=== PATIENT | male | born 1960 | race Caucasian/White ===

== ENCOUNTER 2018-05-17 16:46 | Inpatient (IN) | payer SELFPAY ==
[~2018-05-17] VITALS: Ht 188 cm; Wt 113.4 kg
--- NOTE | 2018-05-17 17:48 | ED CARDIAC/CP/PALPITATIONS ---
History of Present Illness General Chief Complaint: Abdominal Pain/Flank Pain Stated Complaint: "ABD PAIN,FATIGUE" Source: patient, old records Exam Limitations: no limitations Vital Signs & Intake/Output Vital Signs & Intake/Output Vital Signs Date Time Temp Pulse Resp B/P B/P Pulse O2 O2 Flow FiO2 Mean Ox Delivery Rate 05/18 0714 98.3 109 22 127/81 96 Room Air 05/18 0046 92 Nasal 2.0L Cannula 05/18 0046 28 90 Room Air 05/17 2348 98.4 118 18 138/96 96 Room Air 05/17 2225 97.8 126 16 123/87 97 Room Air 05/17 2021 119 16 120/86 97 Room Air 05/17 2006 130 118/90 05/17 2003 130 118/90 05/17 1936 126 105/81 05/17 1857 97.8 120 18 102/64 98 Room Air Room Air 05/17 1832 97.3 80 18 188/96 05/17 1706 97.3 80 18 188/96 97 Room Air ED Intake and Output 05/18 0000 05/17 1200 Intake Total Output Total 300 Balance -300 Output, Urine 300 Patient 113.398 kg Weight Allergies Coded Allergies: NO KNOWN ALLERGIES (05/17/18) Reconcile Medications Apixaban (Eliquis) 5 MG TABLET 5 MG PO BID PRN Atrial fibrillation Cephalexin 500 MG CAPSULE 500 MG PO Q12 UTI Diltiazem Cd (Diltiazem ER) 120 MG CAP.ER.DEG 120 MG PO DAILY atrial fibrillation Triage Note: PT TO TRIAGE WITH MULTIPLE COMPLAINTS, STATES THAT HE STOPPED SMOKING ABOUT 1 WEEK AGO, STATES THAT HE HAS NOT BEEN FEELING WELL FOR THE PAST WEEK, COMPLAINS OF FATIGUE, NO APPETITE , HAS HAD NON PRODUCTIVE COUGH AND SOME SOB, O2 SAT 97 % ON RA, AFEBRILE, DENIES ABD PAIN WHILE AT TRIAGE , STATES THAT HE IS WORRIED HE HAS CANCER Triage Nurses Notes Reviewed? yes HPI: 58M with no significant PMH, recently quit smoking after a 30 year habit, presenting with a sensation of generally feeling unwell. Since quitting smoking 4-5 days ago, he has felt agitated, weak, fatigued, and has had a sense of malaise. He was found to be in rapid atrial fibrillation on arrival. He denies chest pain, palpitations, SOB, diaphoresis, lightheadedness, headache, n/v/d, abdominal pain, diarrhea, dysuria. He has no cardiac history, and no family history. No drug use. Past History Travel History Traveled to [place] past 21 day No Medical History Any Pertinent Medical History? see below for history Neurological: NONE EENT: NONE Cardiovascular: NONE Respiratory: NONE Gastrointestinal: NONE Hepatic: NONE Renal: NONE Musculoskeletal: NONE Psychiatric: NONE Endocrine: NONE Blood Disorders: NONE Cancer(s): NONE [employer]/Reproductive: NONE Surgical History Surgical History: non-contributory Psychosocial History What is your primary language Malian Tobacco Use: Quit <30 days ago ETOH Use: denies use Illicit Drug Use: denies illicit drug use Family History Hx Contributory? No Review of Systems Review of Systems Constitutional: Reports: no symptoms. EENTM: Reports: no symptoms. Respiratory: Reports: no symptoms. Cardiovascular: Reports: no symptoms. GI: Reports: no symptoms. Genitourinary: Reports: no symptoms. Musculoskeletal: Reports: no symptoms. Skin: Reports: no symptoms. Neurological/Psychological: Reports: no symptoms. Hematologic/Endocrine: Reports: no symptoms. Immunologic/Allergic: Reports: no symptoms. All Other Systems: Reviewed and Negative Physical Exam Physical Exam General Appearance: well developed/nourished, no apparent distress Head: atraumatic, normal appearance Eyes: Bilateral: normal appearance. Ears, Nose, Throat: hearing grossly normal Neck: normal inspection, supple, full range of motion Respiratory: normal breath sounds, chest non-tender, no respiratory distress Cardiovascular: irregularly irregular Gastrointestinal: soft, non-tender Back: normal inspection, normal range of motion Extremities: normal inspection, normal range of motion Neurologic/Psych: awake, alert, oriented x 3, normal mood/affect Skin: intact, normal color, warm/dry Core Measures ACS in differential dx? No CVA/TIA Diagnosis No Sepsis Present: No Sepsis Focused Exam Completed? No Progress Differential Diagnosis: AMI, aortic dissection, atrial fibrillation, cholecystitis, CHF/pulm edema, costochondritis, hyperkalemia, hypovolemia, hyperthyroid, hyperventilation, intracranial hemorrhage, musculoskeletal pain, myocarditis, pancreatitis, pericarditis, pneumonia, pneumothorax, PSVT, pulmonary embolism, PUD/GERD, PVCs/PACs, respiratory failure, rib fracture, sepsis, unstable angina, V-fib/V-Tach, WPW syndrome Plan of Care: Orders Procedure Date/time Status Heart Healthy Diet 05/18 B Active XRY-CHEST XRAY, TWO VIEWS 05/18 0800 Active PARTIAL THROMBOPLASTIN TIME 05/18 0800 Active Change service to 05/18 0717 Active TROPONIN LEVEL 05/18 0600 Complete MAGNESIUM 05/18 0600 Complete CBC WITHOUT DIFFERENTIAL 05/18 0600 Complete BASIC ELECTROLYTES PLUS BUN&CR 05/18 0600 Complete EKG 05/18 0600 Active ECHOCARDIOGRAM 05/18 0600 Active LOWER RESPIRATORY CULTURE 05/18 0103 Active PARTIAL THROMBOPLASTIN TIME 05/18 0030 Complete TROPONIN LEVEL 05/18 0000 Complete EKG 05/18 0000 Active TRC EVALUATION (GEN) 05/18 UNK Active Discharge Patient 05/18 UNK Active Pathway - chart 05/17 204 Active House Staff 05/17 2047 Active Patient Data 05/17 2028 Active ED Holding Orders 05/17 185 Active Admit to inpatient 05/17 185 Active Vital Signs 05/17 1858 Active Code Status 05/17 1858 Active Intake & Output 05/17 185 Active CULTURE,URINE 05/17 1822 Complete URINE DRUGS OF ABUSE 05/17 1822 Complete TSH REFLEX 05/17 1804 Complete URINALYSIS 05/17 1650 Complete TROPONIN LEVEL 05/17 1650 Complete LIPASE 05/17 1650 Complete LACTIC ACID 05/17 1650 Complete COMPREHENSIVE METABOLIC PANEL 05/17 1650 Complete CBC WITHOUT DIFFERENTIAL 05/17 1650 Complete EKG 05/17 1650 Active Lab Add-on Test 05/17 K Active VTE Mechanical Prophylaxis 05/17 UNK Active Telemetry/Software Asset Manager 05/17 UNK Active Activity/Ambulation 05/17 UNK Active Laboratory Tests 05/18/18 0625: Anion Gap 7, Estimated GFR > 60, BUN/Creatinine Ratio 20.0, Magnesium 2.1, Troponin I 0.04, CBC w Diff NO MAN DIFF REQ, RBC 5.00, MCV 90.0, MCH 29.9, MCHC 33.3, RDW 14.7 H, MPV 8.8, Gran % 67.4, Lymphocytes % 21.3, Monocytes % 8.3, Eosinophils % 2.6, Basophils % 0.4, Absolute Granulocytes 7.2 H, Absolute Lymphocytes 2.3, Absolute Monocytes 0.9 H, Absolute Eosinophils 0.3, Absolute Basophils 0 05/18/18 0030: Troponin I 0.04, APTT 43 H 05/17/18 1950: Lactic Acid Cancelled 05/17/181821: Urine Opiates Screen < 100, Methadone Screen < 40, Barbiturate Screen < 60, Ur Phencyclidine Scrn < 6.00, Amphetamines Screen < 100, U Benzodiazepines Scrn < 85, Urine Cocaine Screen < 50, Urine Cannabis Screen < 5.00, Urinalysis LIGHT H , Urine Color YEL, Urine Clarity HAZY H, Urine pH 6.0, Ur Specific Tracy >= 1.030, Urine Protein 100 H, Urine Ketones NEG, Urine Nitrite POS H, Urine Bilirubin NEG, Urine Urobilinogen 0.2, Ur Leukocyte Esterase SMALL H, Ur Microscopic SEDIMENT EXAMINED, Urine WBC 25-50 H, Urine Bacteria MANY H, Urine Hemoglobin MOD H, Urine Glucose NEG 05/17/18 180: Anion Gap 9, Estimated GFR > 60, BUN/Creatinine Ratio 18.9, Glucose 136 H, Lactic Acid 1.7, Calcium 8.9, Total Bilirubin 1.1, AST 40, ALT 44, Alkaline Phosphatase 89, Troponin I 0.04, Total Protein 7.1, Albumin 3.6, Globulin 3.5, Albumin/Globulin Ratio 1.0 L, Lipase 51, TSH &T3 &Free T4 Intrp 2.890, CBC w Diff NO MAN DIFF REQ, RBC 5.25, MCV 89.6, MCH 29.6, MCHC 33.1, RDW 15.1 H, MPV 8.6, Gran % 66.9, Lymphocytes % 22.6, Monocytes % 7.3, Eosinophils % 2.6, Basophils % 0.6, Absolute Granulocytes 7.2 H, Absolute Lymphocytes 2.4, Absolute Monocytes 0.8 H, Absolute Eosinophils 0.3, Absolute Basophils 0.1 Microbiology 05/18 103 LOWER RESP: Respiratory Culture - COLB 05/18 103 LOWER RESP: Gram Stain - COLB 05/17 1822 URINE ROUT: Urine Culture - COMP Initial ED EKG: AFIB Departure Departure Disposition: STILL A PATIENT Condition: Stable Clinical Impression Primary Impression: New onset atrial fibrillation Referrals: Patient Has No Primary Care Dr (PCP/Family) Departure Forms: Customer Survey General Discharge Information Prescriptions: Current Visit Scripts Cephalexin 500 MG PO Q12 #14 TAB Apixaban (Eliquis) 5 MG PO BID PRN Atrial fibrillation #46 TAB Diltiazem Cd (Diltiazem ER) 120 MG PO DAILY #21 TAB Admission Note Spoke With: Donte Juarez MD Documentation of Exam: Documentation of any treatments & extenuating circumstances including Concerns Regarding Discharge (functional status, medication knowledge or non-compliance, living conditions, etc.) that warrant an admission rather than observation: new onset atrial fibrillation wtih RVR, will admit to medicine for telemetry monitoring, heparin drip, cardizem drip, echocardiogram, cardiology cosnult Critical Care Note Critical Care Note Critical Care Time: non-applicable
[2018-05-17 18:23] LABS: ABSOLUTE BASOPHIL COUNT 0.1 /CUMM (0.0-0.2); ABSOLUTE EOSINOPHIL COUNT 0.3 /CUMM (0.0-0.7); ABSOLUTE GRANULOCYTE CT 7.2 /CUMM (1.4-6.5); ABSOLUTE LYMPH COUNT 2.4 /CUMM (1.2-3.4); ABSOLUTE MONOCYTE COUNT 0.8 /CUMM (0.10-0.60); BASOPHIL % 0.6 % (0.0-2.0); EOSINOPHIL % 2.6 % (0-5); GRANULOCYTE % 66.9 % (42.2-75.2); MEAN CORPUSCULAR HGB 29.6 PG (27.0-31.0); MEAN CORPUSCULAR HGB CONC 33.1 G/DL (33.0-37.0); MEAN CORPUSCULAR VOLUME 89.6 FL (80.0-94.0); MEAN PLATELET VOLUME 8.6 FL (7.4-10.4); PLATELET COUNT 216 /CUMM (130-400); RBC DISTRIBUTION WIDTH 15.1 % (11.5-14.5); RED BLOOD CELL CT 5.25 /CUMM (4.70-6.10); WHITE BLOOD CELL COUNT 10.8 /CUMM (4.8-10.8)
--- NOTE | 2018-05-17 19:36 | History & Physical ---
Mike Almanzar 05/17/181935: General Information and HPI MD Statement: I have seen and personally examined FRAN MADRIGAL and documented this H&P. The patient is a 58 year old M who presented with a patient stated chief complaint of FATIGUE AND WEAKNESS. Source of Information: patient Exam Limitations: poor historian History of Present Illness: 58-year-old male with no significant past medical history presents with five days of weakness and fatigue. He noticed these symptoms, and associates them in time with his attempt to quit smoking. He endorses shortness of breath, but denies any chest pain, claiming only that it "feels weird", but not painful. He says that his dyspnea is somewhat "like a baloon being filled", which relieves the weird feeling, but then returns after some time. The patient also endorses some nausea, and difficulty sleeping. He denies palpitations. He states that he feels better sitting up than lying flat. He has tried no medications to treat his symptoms. In the ED, the patient was found to have atrial fibrillation, with heart rate 130-180. His UA also showed positive nitrites, protein 100, small leuk esterase, 25-50 WBCs, Many bacteria and moderate hemoglobin. Allergies/Medications Home Med list No Known Home Medications Compliance With Home Meds: UNKNOWN Past History Travel History Traveled to [place] past 21 day No Medical History Neurological: NONE EENT: NONE Cardiovascular: NONE Respiratory: NONE Gastrointestinal: NONE Hepatic: NONE Renal: NONE Musculoskeletal: NONE Psychiatric: NONE Endocrine: NONE Blood Disorders: NONE Cancer(s): NONE SUPERVISING APPRAISER/Reproductive: NONE Surgical History Surgical History: non-contributory Past Family/Social History Psychosocial History Where do you live? Home Who Do You Live With? self Services at Home: None Primary Language: Citizen Of The [place] Smoking Status: Former Smoker (quit <5 days prior) ETOH Use: denies use Illicit Drug Use: denies illicit drug use Functional Ability ADLs Independent: dressing, eating, toileting, bathing. Ambulation: independent IADLs Independent: shopping, housework, finances, food prep, telephone, transportation , medication admin. 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 EENTM: Reports: no symptoms. Cardiovascular: Reports: chest pain (more "weird" feeling than pain). Denies: edema, palpitations, syncope. Respiratory: Reports: short of breath. Denies: cough, sputum production, wheezing. GI: Reports: abdominal pain, nausea. Denies: bloating, changes in stool, vomiting. Genitourinary: Reports: no symptoms. Musculoskeletal: Reports: muscle pain (chronic). Skin: Reports: no symptoms. Neurological/Psychological: Reports: no symptoms. Hematologic/Endocrine: Reports: no symptoms. Immunologic/Allergic: Reports: no symptoms. Exam & Diagnostic Data Last 24 Hrs of Vital Signs/I&O Vital Signs Date Time Temp Pulse Resp B/P B/P Pulse O2 O2 Flow FiO2 Mean Ox Delivery Rate 05/17 2225 97.8 126 16 123/87 97 Room Air 05/17 2021 119 16 120/86 97 Room Air 05/17 2006 130 118/90 05/17 2003 130 118/90 05/17 193 126 105/81 05/17 1857 97.8 120 18 102/64 98 Room Air Room Air 05/17 1832 97.3 80 18 188/96 05/17 1706 97.3 80 18 188/96 97 Room Air Physical Exam General Appearance Alert, Oriented X3, Cooperative, Mild Distress Skin No Rashes, No Breakdown, No Significant Lesion Skin Temp/Moisture Exam: Warm/Dry HEENT Atraumatic, PERRLA, EOMI, Mucous Membr. moist/pink Neck Supple, No JVD Cardiovascular irregularly irrgular, rate 110-130, no murmurs, rubs or gallops Lungs Clear to Auscultation, decreased air movement Abdomen Soft, No Tenderness, obese Neurological Normal Speech, Strength at 5/5 X4 Ext, Normal Tone, Sensation Intact Extremities No Clubbing, No Cyanosis, 1+ nonpitting edema LE bilaterally Vascular Normal Pulses, Pulses Symmetrical Last 24 Hrs of Labs/Josafat: Laboratory Tests 05/17/18 1950: Lactic Acid Cancelled 05/17/18 1822: Urine Opiates Screen < 100, Methadone Screen < 40, Barbiturate Screen < 60, Ur Phencyclidine Scrn < 6.00, Amphetamines Screen < 100, U Benzodiazepines Scrn < 85, Urine Cocaine Screen < 50, Urine Cannabis Screen < 5.00, Urinalysis LIGHT H , Urine Color YEL, Urine Clarity HAZY H, Urine pH 6.0, Ur Specific Vona >= 1.030, Urine Protein 100 H, Urine Ketones NEG, Urine Nitrite POS H, Urine Bilirubin NEG, Urine Urobilinogen 0.2, Ur Leukocyte Esterase SMALL H, Ur Microscopic SEDIMENT EXAMINED, Urine WBC 25-50 H, Urine Bacteria MANY H, Urine Hemoglobin MOD H, Urine Glucose NEG 05/17/18 1804: Anion Gap 9, Estimated GFR > 60, BUN/Creatinine Ratio 18.9, Glucose 136 H, Lactic Acid 1.7, Calcium 8.9, Total Bilirubin 1.1, AST 40, ALT 44, Alkaline Phosphatase 89, Troponin I 0.04, Total Protein 7.1, Albumin 3.6, Globulin 3.5, Albumin/Globulin Ratio 1.0 L, Lipase 51, TSH &T3 &Free T4 Intrp 2.890, CBC w Diff NO MAN DIFF REQ, RBC 5.25, MCV 89.6, MCH 29.6, MCHC 33.1, RDW 15.1 H, MPV 8.6, Gran % 66.9, Lymphocytes % 22.6, Monocytes % 7.3, Eosinophils % 2.6, Basophils % 0.6, Absolute Granulocytes 7.2 H, Absolute Lymphocytes 2.4, Absolute Monocytes 0.8 H, Absolute Eosinophils 0.3, Absolute Basophils 0.1 Microbiology 05/17 1822 URINE ROUT: Urine Culture - RECD Diagnostic Data EKG Results Atrial fibrillation HR 130-180, QTc 500 Assessment/Plan Assessment: 58 year old male with no significant PMH comes to ED with complaints of fatigue and weakness x5 days. In the ED he is found to have new onset afib 130-180HR. Incidentally his UA is suggestive of infection. Problem list/plan: New onset afib -Admit to telemetry for monitoring -Vitals, I's & O's per protocol -Potential causes include ACS, PE, hyperthyroid, other electrical heart issues -Repeat serial EKG and troponins to r/o ACS, electrical abnormality -Order thyroid panel to check for hyperthyroid -Chest x-ray showed no acute process, lower lobe opacity -Diltiazem drip 7.5ml/hr for rate control -Cardiology consult in the AM -Consider echocardiogram -Acetaminophen for pain Urinalysis suggestive of infection -Suggestive of infection, although asymptomatic -remote hx of UTI -Ceftriaxone 1g IV x 1 dose -F/u urine cultures Smoking: -Will order nicotine patch if needed -Left lower lobe opacity on chest x-ray and borderline hypoxemia -TRC evaluation -Repeat chest x-ray with PA and lateral in the morning DVT prophylaxis: Heparin gtt and ALPS Heart healthy diet Patient is full code As Ranked By This Provider Problem List: 1. New onset atrial fibrillation Core Measures/Misc (06/15) Cerebrovascular Accident CVA/TIA Diagnosis: No Sepsis (View protocol) If YES complete Sepsis Event Note If YES complete Sepsis Event Note Trae Cruz MD 05/17/182025: General Information and HPI MD Statement: I have seen and personally examined FRAN MADRIGAL and documented this H&P. The patient is a 58 year old M who presented with a patient stated chief complaint of faftigue and weakness. Source of Information: patient Exam Limitations: no limitations History of Present Illness: 58 year old male with PMH history significant for smoking presents with complaints of fatigue and weakness for the past five days. He noticed his symptoms started after smoking cessation and attributed his symptoms to that. He has also noticed some dyspnea. He says he felt weird/strange sensation in his chest substernal, but denies chest pain. He has a hard time describing the sensation in his chest. He has had some intermittent nausea and difficulty sleeping for the past several days. He denies palpitations. His primary symptoms are dyspnea and fatigue. He states he felt better sitting up rather than lying flat. He has exertional dyspnea. He is a daily cigarello smoker. He denies alcohol or illicit substances and drinks two cups of coffee daily. He is employed and lives alone. He states he hasn't been to the doctors in years and reports once being treated for a urinary tract infection but denies any history of kidney stones. He is otherwise well except for obesity, takes no medications, NKDA, no PSH, and unknown family history. In the ED, he was found to be in atrial fibrillation with rapid ventricular response, was started on cardizem and heparin drips, and admitted to telemetry. Allergies/Medications Compliance With Home Meds: GOOD Past History Travel History Traveled to [place] past 21 day No Medical History Neurological: NONE EENT: NONE Cardiovascular: NONE Respiratory: NONE Gastrointestinal: NONE Hepatic: NONE Renal: NONE Musculoskeletal: NONE Psychiatric: NONE Endocrine: NONE Blood Disorders: NONE Cancer(s): NONE SUPERVISING APPRAISER/Reproductive: NONE Other Medical Hx: h/o UTI Surgical History Surgical History: none Past Family/Social History Family History Relations & Conditions if any Relation not specified for: *No pertinent family history Psychosocial History Where do you live? Home Who Do You Live With? self Services at Home: None Primary Language: Citizen Of The [place] Smoking Status: Former Smoker Functional Ability ADLs Independent: dressing, eating, toileting, bathing. Ambulation: independent IADLs Independent: shopping, housework, finances, food prep, telephone, transportation , medication admin. 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 Denies: chills, diaphoresis, fever. EENTM: Reports: no symptoms. Cardiovascular: Reports: chest pain. Denies: edema, palpitations, syncope. Respiratory: Reports: cough, short of breath. Denies: sputum production, wheezing. GI: Reports: abdominal pain, nausea. Denies: bloating, diarrhea, changes in stool, vomiting. Genitourinary: Reports: no symptoms. Denies: dysuria, frequency. Musculoskeletal: Reports: muscle pain. Skin: Reports: no symptoms. Neurological/Psychological: Reports: no symptoms. Hematologic/Endocrine: Reports: no symptoms. Immunologic/Allergic: Reports: no symptoms. All Other Systems: Reviewed and Negative Exam & Diagnostic Data Last 24 Hrs of Vital Signs/I&O Vital Signs Date Time Temp Pulse Resp B/P B/P Pulse O2 O2 Flow FiO2 Mean Ox Delivery Rate 05/17 2021 119 16 120/86 97 Room Air 05/17 2006 130 118/90 05/17 2003 130 118/90 05/17 1936 126 105/81 05/17 1857 97.8 120 18 102/64 98 Room Air Room Air 05/17 1832 97.3 80 18 188/96 05/17 1706 97.3 80 18 188/96 97 Room Air Physical Exam General Appearance Alert, Oriented X3, Cooperative, No Acute Distress Cardiovascular Normal S1, Normal S2, No Murmurs, irregularly irrgular rhythm, tachycardic Lungs decreased air movement Abdomen Normal Bowel Sounds, Soft, No Tenderness, obese Extremities No Clubbing, No Cyanosis, No Edema, Normal Pulses Last 24 Hrs of Labs/Josafat: Laboratory Tests 05/17/18 1822: Urinalysis LIGHT H, Urine Color YEL, Urine Clarity HAZY H, Urine pH 6.0, Ur Specific Vona >= 1.030, Urine Protein 100 H, Urine Ketones NEG, Urine Nitrite POS H, Urine Bilirubin NEG, Urine Urobilinogen 0.2, Ur Leukocyte Esterase SMALL H, Ur Microscopic SEDIMENT EXAMINED, Urine WBC 25-50 H, Urine Bacteria MANY H, Urine Hemoglobin MOD H, Urine Glucose NEG 05/17/18 1804: Anion Gap 9, Estimated GFR > 60, BUN/Creatinine Ratio 18.9, Glucose 136 H, Lactic Acid 1.7, Calcium 8.9, Total Bilirubin 1.1, AST 40, ALT 44, Alkaline Phosphatase 89, Troponin I 0.04, Total Protein 7.1, Albumin 3.6, Globulin 3.5, Albumin/Globulin Ratio 1.0 L, Lipase 51, CBC w Diff NO MAN DIFF REQ, RBC 5.25, MCV 89.6, MCH 29.6, MCHC 33.1, RDW 15.1 H, MPV 8.6, Gran % 66.9, Lymphocytes % 22.6, Monocytes % 7.3, Eosinophils % 2.6, Basophils % 0.6, Absolute Granulocytes 7.2 H, Absolute Lymphocytes 2.4, Absolute Monocytes 0.8 H, Absolute Eosinophils 0.3, Absolute Basophils 0.1 Diagnostic Data EKG Results afib HR 130-180, LAD, QTc 500 Assessment/Plan Assessment: 58 year old male with PMH history significant for smoking presents with complaints of fatigue and weakness for the past five days and found to be in rapid atrial fibrillation. Atrial fibrillation: CHADsvasc 0-1, unknown re: HTN Continue heparin for now, but low risk for CVA Consider d-Dimer-CTA for PE but patient already anticoagulated at this time Continue cardizem IV 7.5mg/hr, titrate to obtain HR control, goal < 110bpm Check serial troponins and EKGs to evaluate for myocardial ischemia Cardiology consultation Obtain echocardiogram to assess for structural heart disease TSH wnl, urine toxicology negative Urinalysis: Suggestive of infection, although asymptomatic History of UTI Ceftriaxone 1g IV x 1 dose Follow up urine cultures Smoking: Will order nicotine patch if needed Left lower lobe opacity on chest x-ray and borderline hypoxemia TRC evaluation Repeat chest x-ray with PA and lateral in the morning Heart healthy diet DVT ppx-heparin gtt Full code As Ranked By This Provider Problem List: 1. New onset atrial fibrillation Core Measures/Misc (06/15) Acute Coronary Syndrome ACS Diagnosis: No Congestive Heart Failure Congestive Heart Failure Diagnosis No Cerebrovascular Accident CVA/TIA Diagnosis: No VTE (View Protocol) VTE Risk Factors Age>40 No Mechanical VTE Prophylaxis d/t N/A MechProphylax Ordered No VTE Pharm Prophylaxis d/t NA PharmProphylax ordered Sepsis (View protocol) Sepsis Present: No If YES complete Sepsis Event Note If YES complete Sepsis Event Note Donte Juarez MD 05/18/18 0154: General Information and HPI MD Statement: I have seen and personally examined FRAN MADRIGAL and documented this H&P. The patient is a 58 year old M who presented with a patient stated chief complaint of []. Source of Information: patient Allergies/Medications Allergies: Coded Allergies: NO KNOWN ALLERGIES (05/17/18) Past Family/Social History Psychosocial History Smoking Status: Former Smoker ETOH Use: denies use Illicit Drug Use: denies illicit drug use Employment History Employment Employed Review of Systems Review of Systems Constitutional: Reports: see HPI. Exam & Diagnostic Data Last 24 Hrs of Vital Signs/I&O Vital Signs Date Time Temp Pulse Resp B/P B/P Pulse O2 O2 Flow FiO2 Mean Ox Delivery Rate 05/18 0046 92 Nasal 2.0L Cannula 05/18 0046 28 90 Room Air 05/17 2348 98.4 118 18 138/96 96 Room Air 05/17 2225 97.8 126 16 123/87 97 Room Air 05/17 2021 119 16 120/86 97 Room Air 05/17 2006 130 118/90 05/17 2003 130 118/90 05/17 1936 126 105/81 05/17 1857 97.8 120 18 102/64 98 Room Air Room Air 05/17 1832 97.3 80 18 188/96 05/17 1706 97.3 80 18 188/96 97 Room Air Intake & Output 05/18 0800 05/18 0000 05/17 1600 Intake Total Output Total 300 Balance -300 Output, Urine 300 Patient 250 lb Weight Physical Exam General Appearance Alert, Oriented X3, Cooperative, Mild Distress Skin No Rashes, No Breakdown, No Significant Lesion Skin Temp/Moisture Exam: Warm/Dry Sepsis Skin Exam (color): Normal for Ethnicity HEENT Atraumatic, PERRLA, EOMI, Mucous Membr. moist/pink Neck Supple, No JVD Cardiovascular irregularly irrgular rhythm, tachycardic Lungs decreased air movement Abdomen Normal Bowel Sounds, Soft, No Tenderness Neurological Normal Speech Last 24 Hrs of Labs/Josafat: Laboratory Tests 05/18/18 0030: Troponin I Pending, APTT 43 H 05/17/18 1950: Lactic Acid Cancelled 05/17/181821: Urine Opiates Screen < 100, Methadone Screen < 40, Barbiturate Screen < 60, Ur Phencyclidine Scrn < 6.00, Amphetamines Screen < 100, U Benzodiazepines Scrn < 85, Urine Cocaine Screen < 50, Urine Cannabis Screen < 5.00, Urinalysis LIGHT H , Urine Color YEL, Urine Clarity HAZY H, Urine pH 6.0, Ur Specific Vona >= 1.030, Urine Protein 100 H, Urine Ketones NEG, Urine Nitrite POS H, Urine Bilirubin NEG, Urine Urobilinogen 0.2, Ur Leukocyte Esterase SMALL H, Ur Microscopic SEDIMENT EXAMINED, Urine WBC 25-50 H, Urine Bacteria MANY H, Urine Hemoglobin MOD H, Urine Glucose NEG 05/17/18 1804: Anion Gap 9, Estimated GFR > 60, BUN/Creatinine Ratio 18.9, Glucose 136 H, Lactic Acid 1.7, Calcium 8.9, Total Bilirubin 1.1, AST 40, ALT 44, Alkaline Phosphatase 89, Troponin I 0.04, Total Protein 7.1, Albumin 3.6, Globulin 3.5, Albumin/Globulin Ratio 1.0 L, Lipase 51, TSH &T3 &Free T4 Intrp 2.890, CBC w Diff NO MAN DIFF REQ, RBC 5.25, MCV 89.6, MCH 29.6, MCHC 33.1, RDW 15.1 H, MPV 8.6, Gran % 66.9, Lymphocytes % 22.6, Monocytes % 7.3, Eosinophils % 2.6, Basophils % 0.6, Absolute Granulocytes 7.2 H, Absolute Lymphocytes 2.4, Absolute Monocytes 0.8 H, Absolute Eosinophils 0.3, Absolute Basophils 0.1 Microbiology 05/18 103 LOWER RESP: Respiratory Culture - ORD 05/18 103 LOWER RESP: Gram Stain - ORD 05/17 1822 URINE ROUT: Urine Culture - RECD Core Measures/Misc (06/15) Sepsis (View protocol) If YES complete Sepsis Event Note If YES complete Sepsis Event Note Attending MD Review Statement Attending Statement Attending MD Statement: examined this patient, discuss w/resident/PA/FINANCIAL ADVISOR TRAINEE, agreed w/resident/PA/FINANCIAL ADVISOR TRAINEE, reviewed EMR data (avail) Attending Assessment/Plan: This patient is a 58-year-old male without a significant past medical history who presents with a five day history of weakness and fatigue. He noticed these symptoms, and associates them with his attempt to quit smoking. He has shortness of breath. He states that he feels better sitting up than lying flat. In the ED, the patient was found to have atrial fibrillation, with heart rate 130-180. His UA also showed positive nitrites, protein 100, small leuk esterase, 25-50 WBCs, Many bacteria and moderate hemoglobin. Will admit to telemetry for new onset Afib and r/o ACS. Cardizem drip to titrate to effect. FULL CODE.
--- NOTE | 2018-05-17 22:07 | RADIOLOGY REPORT ---
EXAMINATION: XRY-PORTABLE CHEST XRAY CLINICAL INFORMATION: Presumptive Dx: PNA
Signs Symptoms: COUGH SMOKER NEW AFIB
COMPARISON: None TECHNIQUE: XRY-PORTABLE CHEST XRAY Tubes and lines: None Lungs and Jodi: There is diffuse increased interstitial lung markings. Left hemidiaphragm is obscured probably by underlying infiltrate or atelectasis. Pleura: Left costophrenic angle is obscured. Probably small effusion. Heart and mediastinum: Heart and mediastinum widened exaggerated by the AP technique. Bones: Skeletal structures included are normal for patient's age. IMPRESSION: Left hemidiaphragm is obscured probably by underlying infiltrate and/or atelectasis and probably a small pleural effusion. Follow-up chest PA and lateral recommended when patient's condition permits.
[2018-05-18 00:59] LABS: PTT 43 SEC (25-37)
[2018-05-18 06:52] LABS: ABSOLUTE BASOPHIL COUNT 0 /CUMM (0.0-0.2); ABSOLUTE EOSINOPHIL COUNT 0.3 /CUMM (0.0-0.7); ABSOLUTE GRANULOCYTE CT 7.2 /CUMM (1.4-6.5); ABSOLUTE LYMPH COUNT 2.3 /CUMM (1.2-3.4); ABSOLUTE MONOCYTE COUNT 0.9 /CUMM (0.10-0.60); BASOPHIL % 0.4 % (0.0-2.0); EOSINOPHIL % 2.6 % (0-5); GRANULOCYTE % 67.4 % (42.2-75.2); MEAN CORPUSCULAR HGB 29.9 PG (27.0-31.0); MEAN CORPUSCULAR HGB CONC 33.3 G/DL (33.0-37.0); MEAN PLATELET VOLUME 8.8 FL (7.4-10.4); PLATELET COUNT 195 /CUMM (130-400); RBC DISTRIBUTION WIDTH 14.7 % (11.5-14.5); WHITE BLOOD CELL COUNT 10.6 /CUMM (4.8-10.8)
[2018-05-18 07:14] VITALS: BP 127/81
--- NOTE | 2018-05-18 07:19 | PN- Housestaff ---
Subjective Follow-up For: New-onset atrial fibrillation Subjective: I saw the patient in the emergency department. He does not wanted to talk and did not allow the physical examination. He just wanted to go. He thinks he is all right. I tried to discuss him about his medical problem including atrial fibrillation. He does not wanted to listen. I told him that it is my responsibility to make him aware about his medical problem and risk of leaving the hospital. I told him that he has atrial fibrillation which is not well controlled and he has risk of stroke if not been anticoagulated properly. He states that he knows about it and he does not care if he is not being treated. I asked him that does he have any primary care provider or video tape transferrer whom he can follow-up. He does not wanted to have any primary care provider and video tape transferrer. I told him that I need to start him on rate control medication and blood thinner. He need to follow primary care provider and video tape transferrer. I told him that he has to sign AMA form. he signed the AMA form. In between he was very abusive and aggressive. He told that who will pay his bill. He does not have any insurance. I talked to the special education case manager, disc pad knockout worker Marychuy. They told me to talk to naval architect specialist. I told the patient that there are couple of options that we can help him with. He does not want to take any help. I discussed with Dr. Baker and Dr. Crocker, and it was decided to discharge the patient on tablet Eliquis 5 mg twice daily and tablet Cardizem CD 120 mg daily. We also gave tablet Ceftin 500 mg twice daily for UTI. On the patient request; we discharged him. We also refered him to primary care provider Dr. Brain Diaz and video tape transferrer Dr. Baker. Review of Systems Constitutional: Reports: no symptoms. Comments: Cannot comment as patient did not want to discuss his problems. Objective Last 24 Hrs of Vital Signs/I&O Vital Signs Date Time Temp Pulse Resp B/P B/P Pulse O2 O2 Flow FiO2 Mean Ox Delivery Rate 05/18 0714 98.3 109 22 127/81 96 Room Air 05/18 0046 92 Nasal 2.0L Cannula 05/18 0046 28 90 Room Air 05/17 2348 98.4 118 18 138/96 96 Room Air 05/17 2225 97.8 126 16 123/87 97 Room Air 05/17 2021 119 16 120/86 97 Room Air 05/17 2006 130 118/90 05/17 2003 130 118/90 05/17 1936 126 105/81 05/17 1857 97.8 120 18 102/64 98 Room Air Room Air 05/17 1832 97.3 80 18 188/96 05/17 1706 97.3 80 18 188/96 97 Room Air Intake & Output 05/18 1600 05/18 0800 05/18 0000 Intake Total Output Total 300 Balance -300 Output, Urine 300 Patient 113.398 kg Weight Physical Exam General Appearance: Alert, Oriented X3, aggresive, abusive Assessment/Plan Assessment: Patient left AMA Problem List: 1. New onset atrial fibrillation Pain Ratin Pain Location: n/a Pain Goal: n/a Pain Plan: n/a Tomorrow's Labs & Rationales: n/a
--- NOTE | 2018-05-18 08:15 | Patient Discharge Instructions ---
Discharge Instructions General Discharge Information You were seen/treated for: New onset atrial fibrillation; treated with cardizem drip. Special Instructions: please follow up with PCP with in a week of discharge. please follow up with sponge fisherman with in a week of discharge. Diet Recommended Diet: Heart Healthy Acute Coronary Syndrome Inclusion Criteria At DC or during hospital stay patient has or had the following: ACS DIAGNOSIS No Discharge Core Measures Meds if any: Prescribed or Continued at Discharge Meds if any: NOT Prescribed or Continued at Discharge Congestive Heart Failure Inclusion Criteria At DC or during hospital stay patient has or had the following: CHF DIAGNOSIS No Discharge Core Measures Meds if any: Prescribed or Continued at Discharge Meds if any: NOT Prescribed or Continued at Discharge Cerebrovascular accident Inclusion Criteria At DC or during hospital stay patient has or had the following: CVA/TIA Diagnosis No Discharge Core Measures Meds if any: Prescribed or Continued at Discharge Meds if any: NOT Prescribed or Continued at Discharge Venous thromboembolism Inclusion Criteria VTE Diagnosis No VTE Type NONE VTE Confirmed by (Test) NONE Discharge Core Measures - Per Current guidelines, there needs to be overlap - treatment for the first 5 days of Warfarin therapy. - If discharged on Warfarin prior to 5 days of - overlap therapy, the patient will need to be - assessed for post discharge needs including - *Post discharge parental anticoagulation - *Warfarin and/or parental anticoagulation education - *Follow up date to check INR post discharge At least 5 days overlap therapy as Inpatient No Meds if any: Prescribed or Continued at Discharge Note: Overlap Therapy is Warfarin and Anticoagulant Meds if any: NOT Prescribed or Continued at Discharge
[2018-05-18] MEDS ORDERED: DILTIAZEM ER120 M2 PO ×2 (08:31→08:39)
[2018-05-18] MEDS ORDERED: CEPHALEXIN500 M3 PO (08:31)
[2018-05-18] MEDS ORDERED: ELIQUIS5 M1 PO ×2 (08:31→08:39)
== END 2018-05-18 11:11 | disposition left against medical advice (07) | DRG 310 ==
LOC: ERH 16:46 → ERHI 18:58
PROVIDERS: Internal Medicine; Physician Assistant; Preventive Medicine Public Health & General Preventive Medicine
DX: I48.91 Unspecified atrial fibrillation (principal); F17.210 Nicotine dependence, cigarettes, uncomplicated; E66.9 Obesity, unspecified; Z53.21 Procedure and treatment not carried out due to patient leaving prior to being seen by health care provider; R45.6 Violent behavior
CPT/HCPCS: ERO; 71045; 80307; 81001; 82436; 87070; 87086; 93005; 93010; 96365; 96366; 96375; 96376; J0696; J1644

== ENCOUNTER 2018-06-06 08:22 | Inpatient (IN) | payer OTHER ==
[~2018-06-06] VITALS: Ht 188 cm; Wt 139.0 kg
[~2018-06-06 08:22] MED LIST: CEPHALEXIN500 M3 PO; COUMADIN5 M2 PO; DILTIAZEM 24HR120 MG PO; DILTIAZEM ER120 M2 PO; ELIQUIS5 M1 PO
[2018-06-06 08:53] LABS: ABSOLUTE BASOPHIL COUNT 0.1 /CUMM (0.0-0.2); ABSOLUTE EOSINOPHIL COUNT 0.1 /CUMM (0.0-0.7); ABSOLUTE GRANULOCYTE CT 8.3 /CUMM (1.4-6.5); ABSOLUTE LYMPH COUNT 2.2 /CUMM (1.2-3.4); ABSOLUTE MONOCYTE COUNT 0.9 /CUMM (0.10-0.60); BASOPHIL % 0.5 % (0.0-2.0); EOSINOPHIL % 1.1 % (0-5); GRANULOCYTE % 71.7 % (42.2-75.2); HEMATOCRIT 51.8 % (42-52); MEAN CORPUSCULAR HGB 29.5 PG (27.0-31.0); MEAN CORPUSCULAR HGB CONC 32.4 G/DL (33.0-37.0); MEAN CORPUSCULAR VOLUME 91.1 FL (80.0-94.0); MEAN PLATELET VOLUME 9.9 FL (7.4-10.4); PLATELET COUNT 197 /CUMM (130-400); RED BLOOD CELL CT 5.68 /CUMM (4.70-6.10); WHITE BLOOD CELL COUNT 11.6 /CUMM (4.8-10.8)
[2018-06-06 09:09] LABS: PTT 50 SEC (25-37)
[2018-06-06 09:13] LABS: PT 53.9 SEC (9.4-12.5)
--- NOTE | 2018-06-06 10:23 | ED DYSPNEA/ASTHMA COMPLAINT ---
History of Present Illness General Chief Complaint: General Adult Stated Complaint: "AFIB" Source: patient, old records Exam Limitations: unable to give history, poor historian Vital Signs & Intake/Output Vital Signs & Intake/Output Vital Signs Date Time Temp Pulse Resp B/P B/P Pulse O2 O2 Flow FiO2 Mean Ox Delivery Rate 06/06 1457 98.7 108 20 114/60 96 Room Air 06/06 1244 110 110/62 08 1111 98.4 109 18 108/62 06/06 1056 98.4 109 18 108/62 98 Nasal 2.0L Cannula 06/06 941 98.6 134 18 110/62 06/06 0941 98.6 134 18 110/62 06/06 0940 98.6 134 18 110/62 98 Room Air 06/06 0838 160 122/90 06/06 0836 Room Air Room Air 06/06 0824 96.7 160 24 122/90 99 Room Air Room Air Allergies Coded Allergies: No Known Allergies (06/06/18) Reconcile Medications Diltiazem Cd (Diltiazem ER) 120 MG CAP.ER.DEG 120 MG PO DAILY atrial fibrillation Warfarin Sodium (Coumadin) 5 MG TABLET 1 TAB PO DAILY A FIB TAKE 2 PILLS TADY, 1 1/2 PILLS TOMORROW AND THEN PILL DAILY Core Measure Meds Pre-Hospital eliquis Triage Note: PT TO ED FOR C/C OF SOB. "I HAVE AFIB." PT'S HEART RATE 160 IN TRIAGE. Triage Nurses Notes Reviewed? yes Onset: Just prior to arrival Duration: constant, continues in ED Timing: recent history Severity: severe Activities at Onset: rest Prior Episodes/Possible Cause: occasional episodes Modifying Factors: Improves With: rest. Worsens With: movement. Associated Symptoms: weakness HPI: 1 week prior to admission patient was diagnosed with atrial fibrillation decided against hospitalization prescribed diltiazem and Eliquis. He presents with shortness of breath palpitations and chest discomfort. He denies fever chills nausea vomiting diarrhea abdominal pain headache dysuria rash bleeding. Past History Travel History Traveled to [place] past 21 day No Medical History Any Pertinent Medical History? 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 No Review of Systems Review of Systems Constitutional: Reports: no symptoms. EENTM: Reports: no symptoms. Respiratory: Reports: see HPI, short of breath. Cardiovascular: Reports: see HPI, chest pain, palpitations. GI: Reports: no symptoms. Genitourinary: Reports: no symptoms. Musculoskeletal: Reports: no symptoms. Skin: Reports: no symptoms. Neurological/Psychological: Reports: no symptoms. Hematologic/Endocrine: Reports: no symptoms. Immunologic/Allergic: Reports: no symptoms. All Other Systems: Reviewed and Negative Physical Exam Physical Exam General Appearance: well developed/nourished, alert, awake, anxious, moderate distress, obese Head: atraumatic, normal appearance Eyes: Bilateral: normal appearance, PERRL, EOMI. Ears, Nose, Throat: normal pharynx, normal ENT inspection, hearing grossly normal Neck: normal inspection, supple, full range of motion, no midline tenderness Respiratory: chest non-tender, decreased breath sounds, crackles Cardiovascular: normal peripheral pulses, tachycardia, irregularly irregular Peripheral Pulses: 4+ carotid (R), 4+ carotid (L) Gastrointestinal: normal bowel sounds, soft, non-tender, no organomegaly Extremities: normal capillary refill, normal range of motion, pedal edema, no ligament instability Neurologic/Psych: no motor/sensory deficits, awake, alert, oriented x 3, nuclear physician II- XII nml as tested Skin: intact, normal color, warm/dry Lymphatic: no anterior cervical king Core Measures ACS in differential dx? Yes No ASA d/t Pharmacological CI CVA/TIA Diagnosis No Sepsis Present: No Sepsis Focused Exam Completed? No Progress Differential Diagnosis: CHF, COPD Plan of Care: Orders Procedure Date/time Status PROTHROMBIN TIME 06/07 600 Active CBC WITHOUT DIFFERENTIAL 06/07 600 Active BASIC ELECTROLYTES PLUS BUN&CR 06/07 600 Active Regular Diet 06/06 L Active TROPONIN LEVEL 06/06 2000 Active EKG 06/06 2000 Active TROPONIN LEVEL 06/06 1400 Active EKG 06/06 1400 Active ECHOCARDIOGRAM 06/06 1114 Active Pathway - chart 06/06 1105 Active House Staff 06/06 1105 Active Patient Data 06/06 1105 Active Code Status 06/06 1105 Active Patient Data 06/06 1036 Active OXYGEN SETUP (GEN) 06/06 958 Active Saline Lock 06/06 958 Active Admit to inpatient 06/06 958 Active Vital Signs 06/06 958 Active Activity/Ambulation 06/06 958 Active Code Status 06/06 958 Complete TROPONIN LEVEL 06/06 834 Complete PARTIAL THROMBOPLASTIN TIME 06/06 834 Complete PROTHROMBIN TIME 06/06 834 Complete MAGNESIUM 06/06 834 Complete COMPREHENSIVE METABOLIC PANEL 06/06 834 Complete CBC WITHOUT DIFFERENTIAL 06/06 834 Complete Intake & Output 06/06 833 Active THYROID STIMULATING HORMONE 06/06 830 Complete THYROXINE 06/06 830 Complete B-TYPE NATRIURETIC PEP (BNP) 06/06 830 Complete EKG 06/06 824 Active Lab Add-on Test 06/06 UNK Active VTE Mechanical Prophylaxis 06/06 UNK Active Vital Signs 06/06 UNK Active Telemetry/Engraver Machine 06/06 UNK Active Activity/Ambulation 06/06 UNK Active Current Medications Sig/Guy Start time Last Medication Dose Stop Time Status Admin Diltiazem HCl 30 MG Q6 06/06 1200 AC (Cardizem) Furosemide 20 MG DAILY 06/06 1130 AC (Lasix) Acetaminophen 650 MG Q6P PRN 06/06 1100 AC (Tylenol) Oxycodone/ 1 TAB Q6P PRN 06/06 1100 AC Acetaminophen (Percocet) Laboratory Tests 06/06/18 1405: Troponin I Pending 06/06/18 0830: Anion Gap 11, Estimated GFR > 60, BUN/Creatinine Ratio 17.3, Glucose 162 H, Calcium 8.4, Magnesium 2.0, Total Bilirubin 2.2 H, AST 35, ALT 33, Alkaline Phosphatase 91, Troponin I 0.06, Dfp-[id number] Pept 6190 H, Total Protein 6.7, Albumin 3.7, Globulin 3.0, Albumin/Globulin Ratio 1.2, TSH 2.240, Thyroxine (T4) 10.6, PT 53.9 *H, INR 4.87 *H, APTT 50 H, CBC w Diff NO MAN DIFF REQ, RBC 5.68, MCV 91.1, MCH 29.5, MCHC 32.4 L, RDW 15.0 H, MPV 9.9, Gran % 71.7, Lymphocytes % 18.9 L, Monocytes % 7.8, Eosinophils % 1.1, Basophils % 0.5, Absolute Granulocytes 8.3 H, Absolute Lymphocytes 2.2, Absolute Monocytes 0.9 H, Absolute Eosinophils 0.1, Absolute Basophils 0.1 Diagnostic Imaging: Viewed by Me: Radiology Read. Discussed w/RAD: Radiology Read. CXR Impression: 1. Enlarged cardiomediastinal silhouette, may represent cardiomegaly versus pericardial effusion or combination thereof, given the difference in technique, appears similar to prior study dated 05/17/2018. 2. Superimposed likely mild CHF. Initial ED EKG: AFIB, nonspecific ST T wave chg Prior EKG: changed Repeat EKG: unchanged Rhythm Strip: atrial fibrillation Departure Departure Disposition: STILL A PATIENT Condition: Stable Clinical Impression Primary Impression: Atrial fibrillation with rapid ventricular response Secondary Impressions: CHF (congestive heart failure) Referrals: Patient Has No Primary Care Dr (PCP/Family) Departure Forms: Customer Survey General Discharge Information Admission Note Spoke With: Efe RANDLE,Gretchen Documentation of Exam: Documentation of any treatments & extenuating circumstances including Concerns Regarding Discharge (functional status, medication knowledge or non-compliance, living conditions, etc.) that warrant an admission rather than observation: Heart rate control by IV medications IV diuresis cardiology evaluation medication adjustment continuing care discharge planning. Critical Care Note Critical Care Note Critical Care Time: 30-74 min (45)
--- NOTE | 2018-06-06 10:54 | RADIOLOGY REPORT ---
EXAMINATION: XR PORTABLE CHEST CLINICAL INFORMATION: 58-year-old male with rapid atrial fibrillation and shortness of breath. COMPARISON: Chest done on 05/17/2018. TECHNIQUE: Portable frontal view of the chest was obtained. FINDINGS: The cardiomediastinal silhouette is significantly enlarged, may represent cardiomegaly versus pericardial effusion or combination thereof, given the slight difference in technique, appears similar to prior study. Mild pulmonary venous congestion is present, may represent mild CHF. Both lung youngblood otherwise appear clear. No definite pleural effusion present. Visualized upper abdomen is suboptimally evaluated due to underexposure. IMPRESSION: 1. Enlarged cardiomediastinal silhouette, may represent cardiomegaly versus pericardial effusion or combination thereof, given the difference in technique, appears similar to prior study dated 05/17/2018. 2. Superimposed likely mild CHF.
--- NOTE | 2018-06-06 11:31 | History & Physical ---
Faustino Coats 06/06/18 1130: General Information and HPI MD Statement: I have seen and personally examined FRAN MADRIGAL and documented this H&P. The patient is a 58 year old M who presented with a patient stated chief complaint of shortness of breath and palpitations Source of Information: patient Exam Limitations: no limitations History of Present Illness: This is a 58-year-old male with past medical history significant for atrial fibrillation on Coumadin presented to the hospital with a chief complaint of worsening shortness of breath and palpitations for 1 day Patient was admitted to [facility] on May 17, 2018 for new onset atrial fibrillation. However he left AMA within few hours of admission. He was not seen by any fur designer. He was given Cardizem 120 extended release, Eliquis 5 mg twice daily prescriptions. He was advised to follow-up with Dr. Baker fur designer as an outpatient. However after that he did not take any of the medications, did not follow fur designer. Again he was seen at [facility] on May 30, 2018, rapid A. fib, heart rate 150s, left AMA. He was given Cardizem and warfarin prescription as he could not afford Eliquis. Patient reports that he has been taking Cardizem 120 daily and warfarin 5 mg daily since then. He now reports worsening shortness of breath which is acute on chronic. Patient has shortness of breath which is ongoing for last 6 weeks associated with palpitations. He denied any chest pain, fever, chills. Thyroid numbers were within normal limits last time. Denied any nausea, vomiting, abdominal pain, change in bladder bowel habits. He reports bilateral lower extremity swelling for a few weeks. He quit smoking 6 weeks ago. He smoked 1 pack per day for 30 years. Denies alcohol abuse and illicit drug abuse. He has no primary care physician. He never followed up with fur designer. Allergies/Medications Allergies: Coded Allergies: No Known Allergies (06/06/18) Home Med list Diltiazem Cd (Diltiazem ER) 120 MG CAP.ER.DEG 120 MG PO DAILY atrial fibrillation Lisinopril 10 MG TABLET 10 MG PO DAILY BP Metoprolol Tartrate 25 MG TABLET 25 MG PO BID AFIB Warfarin Sodium (Coumadin) 5 MG TABLET 1 TAB PO DAILY AFIB Coumadin to be dosed per INR to maintain a range of 2 to 3 Compliance With Home Meds: POOR Past History Travel History Traveled to [place] past 21 day No Medical History Neurological: NONE EENT: NONE Cardiovascular: AFIB Respiratory: NONE Gastrointestinal: NONE Hepatic: NONE Renal: NONE Musculoskeletal: NONE Psychiatric: NONE Endocrine: NONE Blood Disorders: NONE Cancer(s): NONE 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 self Services at Home: None Primary Language: Vietnamese Smoking Status: Former Smoker ETOH Use: denies use Illicit Drug Use: denies illicit drug use Functional Ability ADLs Independent: dressing, eating, toileting, bathing. Ambulation: independent IADLs Independent: shopping, housework, finances, food prep, telephone, transportation , medication admin. Review of Systems Review of Systems Constitutional: Denies: chills, diaphoresis, fever, malaise, weakness, unexplained weight loss. EENTM: Denies: blurred vision, double vision, visual changes, eye pain. Cardiovascular: Reports: palpitations. Denies: chest pain, edema, orthopena, peripheral edema, syncope. Respiratory: Reports: short of breath. Denies: hemoptysis, orthopnea, sputum production, stridor, wheezing. GI: Denies: abdominal pain, bloating, constipation, diarrhea. Genitourinary: Denies: discharge, dysuria, frequency. Musculoskeletal: Denies: back pain, gout, joint pain, joint swelling. Neurological/Psychological: Denies: confusion, depressed, numbness, paresthesia, pre-existing deficit. Hematologic/Endocrine: Denies: bruising, bleeding. Exam & Diagnostic Data Last 24 Hrs of Vital Signs/I&O Vital Signs Date Time Temp Pulse Resp B/P B/P Pulse O2 O2 Flow FiO2 Mean Ox Delivery Rate 06/06 1111 98.4 109 18 108/62 06/06 1056 98.4 109 18 108/62 98 Nasal 2.0L Cannula 06/06 941 98.6 134 18 110/62 06/06 0941 98.6 134 18 110/62 06/06 0940 98.6 134 18 110/62 98 Room Air 06/06 838 160 122/90 06/06 836 Room Air Room Air 09/08 0824 96.7 160 24 122/90 99 Room Air Room Air Intake & Output 06/06 1600 06/06 0800 06/06 0000 Intake Total 0 Output Total Balance 0 Intake, Oral 0 Patient 108.862 kg Weight Weight Reported by Patient Measurement Method Physical Exam General Appearance Alert, Oriented X3, Cooperative, No Acute Distress Skin No Rashes, No Breakdown Skin Temp/Moisture Exam: Warm/Dry Sepsis Skin Exam (color): Normal for Ethnicity HEENT Atraumatic, PERRLA, EOMI, Mucous Membr. moist/pink Neck Supple, No JVD, No thryomegaly Lymphatic Cervical nl Cardiovascular Normal S1, Normal S2, No Murmurs, irregular rhythm Lungs Normal Air Movement Abdomen Normal Bowel Sounds, Soft, No Tenderness Extremities No Clubbing, No Cyanosis, Normal Pulses, No Tenderness/Swelling, 1 pitting edema Vascular Normal Pulses, Pulses Symmetrical Last 24 Hrs of Labs/Josafat: Laboratory Tests 06/06/18 0830: Anion Gap 11, Estimated GFR > 60, BUN/Creatinine Ratio 17.3, Glucose 162 H, Calcium 8.4, Magnesium 2.0, Total Bilirubin 2.2 H, AST 35, ALT 33, Alkaline Phosphatase 91, Troponin I 0.06, Total Protein 6.7, Albumin 3.7, Globulin 3.0, Albumin/Globulin Ratio 1.2, TSH Pending, Thyroxine (T4) Pending, PT 53.9 *H, INR 4.87 *H, APTT 50 H, CBC w Diff NO MAN DIFF REQ, RBC 5.68, MCV 91.1, MCH 29.5, MCHC 32.4 L, RDW 15.0 H, MPV 9.9, Gran % 71.7, Lymphocytes % 18.9 L, Monocytes % 7.8, Eosinophils % 1.1, Basophils % 0.5, Absolute Granulocytes 8.3 H, Absolute Lymphocytes 2.2, Absolute Monocytes 0.9 H, Absolute Eosinophils 0.1 , Absolute Basophils 0.1 Assessment/Plan Assessment: This is a 58-year-old male with past medical history significant for atrial fibrillation on Coumadin presented to the hospital with a chief complaint of worsening shortness of breath and palpitations for 1 day. ---- Vitals afebrile heart rate 160, respiratory 24, blood pressure 122/90, saturating at 98 on 2l Labs WBC 11.6, hemoglobin 10, hematocrit 57, platelets 197 Sodium 140, potassium 3.9, creatinine 1.1, BUN 90, glucose 162 INR 4.87 Patient received IV Cardizem push 20x1 and 10x1 in the emergency room. Received oral Cardizem 120, digoxin 0.5 and 0.25 IV. EKG showed atrial fibrillation, rate 162, left anterior fascicular block Chest x-ray 1. Enlarged cardiomediastinal silhouette, may represent cardiomegaly versus pericardial effusion or combination thereof, given the difference in technique, appears similar to prior study dated 05/17/2018. 2. Superimposed likely mild CHF. 1. Rapid A. fib Patient presented with worsening shortness of breath and palpitations for 1 day. Of note he mentioned that he has been having similar complaints for last 6 weeks. He was recently diagnosed with new onset A. fib, taking Cardizem and warfarin for 1 week. He has been very noncompliant with the medications and follow up with PCP or fur designer. * Admit to telemetry * Monitor vitals every shift * Continuous telemetry monitoring * Serial troponin and EKG * Cardizem 30 every 6hrs- titrate based on heart rate * Hold anticoagulation given supratherapeutic INR * Will get baseline echocardiogram * Thyroid function tests * Follow-up cardiology recommendations 2. Supratherapeutic INR INR 4.87. Patient has been taking warfarin for last 1 week,, never checked INR as an outpatient. Never followed with fur designer. * Hold warfarin * Hold other anticoagulant agents * Follow-up INR in a.m. 3. Acute on chronic shortness of breath Patient has acute on chronic shortness of breath for 6 weeks. Chest x-ray showed cardiomegaly/history of mild CHF. No baseline echocardiogram. Given his shortness of breath, lower extremity swelling, elevated proBNP most likely acute CHF * Continuous telemetry monitoring * Ins/outs * Follow-up electrolytes and creatinine * Follow-up echocardiogram * Lasix 20 mg IV daily * Follow cardio recommendations Patient is full code DVT prophylaxis Alps only given elevated INR Pain pathway ordered Regular diet As Ranked By This Provider Problem List: 1. New onset atrial fibrillation Core Measures/Misc (06/15) Acute Coronary Syndrome ACS Diagnosis: No Congestive Heart Failure Congestive Heart Failure Diagnosis No Cerebrovascular Accident CVA/TIA Diagnosis: No VTE (View Protocol) VTE Risk Factors No risk factors No Mechanical VTE Prophylaxis d/t N/A MechProphylax Ordered No VTE Pharm Prophylaxis d/t NA PharmProphylax ordered Sepsis (View protocol) Sepsis Present: No If YES complete Sepsis Event Note If YES complete Sepsis Event Note Efe RANDLE,Gretchen 06/06/18 1649: Core Measures/Misc (06/15) Sepsis (View protocol) If YES complete Sepsis Event Note If YES complete Sepsis Event Note Attending MD Review Statement Attending Statement Attending MD Statement: examined this patient, discuss w/resident/PA/GROUND PRODUCTS DIRECTOR, agreed w/resident/PA/GROUND PRODUCTS DIRECTOR, reviewed EMR data (avail), discussed with nursing, discussed with case mgmt, reviewed images, amended to note Attending Assessment/Plan: 38-year-old male with past medical history significant for recently diagnosed atrial fibrillation, medication noncompliance, was discharged on Cardizem and Eliquis which he was not taking and recently seen in the emergency room and was started on Coumadin. Patient presented today with shortness of breath, some chest discomfort and palpitations. Apparently patient's insurance does not cover NOACs. Patient is overall noncompliant with his Cardizem also. He did receive IV and oral Cardizem in the emergency room. By the time I saw him his rate was slightly better he has had started to feel slightly better. He denies any nausea, vomiting. He did present with a fast rate which was atrial fibrillation but later after receiving the medication that has improved. He remains in atrial fibrillation. Vital Signs Date Time Temp Pulse Resp B/P B/P Pulse O2 O2 Flow FiO2 Mean Ox Delivery Rate 06/06 1457 98.7 108 20 114/60 96 Room Air 06/06 1244 110 110/62 08 1111 98.4 109 18 108/62 06/06 1056 98.4 109 18 108/62 98 Nasal 2.0L Cannula 06/06 941 98.6 134 18 110/62 06/06 0941 98.6 134 18 110/62 06/06 0940 98.6 134 18 110/62 98 Room Air 06/06 0838 160 122/90 06/06 0836 Room Air Room Air 06/06 0824 96.7 160 24 122/90 99 Room Air Room Air on exam; aox3, nad. cv; s1,s2, irregular, tachy. resp; clear abd; soft, nt, bs+ ext; 1+ edema Laboratory Tests 06/06 06/06 1405 0830 Chemistry Sodium (137 - 145 mmol/L) 140 Potassium (3.5 - 5.1 mmol/L) 3.9 Chloride (98 - 107 mmol/L) 106 Carbon Dioxide (22 - 30 mmol/L) 23 Anion Gap (5 - 16) 11 BUN (9 - 20 mg/dL) 19 Creatinine (0.7 - 1.2 mg/dL) 1.1 Estimated GFR (>60 ml/min) > 60 BUN/Creatinine Ratio (7 - 25 %) 17.3 Glucose (65 - 99 mg/dL) 162 H Calcium (8.4 - 10.2 mg/dL) 8.4 Magnesium (1.6 - 2.3 mg/dL) 2.0 Total Bilirubin (0.2 - 1.3 mg/dL) 2.2 H AST (17 - 59 U/L) 35 ALT (21 - 72 U/L) 33 Alkaline Phosphatase (< 127 U/L) 91 Troponin I (<0.11 ng/ml) 0.06 0.06 Oso-X-Klimormdlfd Pept (<125 pg/mL) 6190 H Total Protein (6.3 - 8.2 g/dL) 6.7 Albumin (3.5 - 5.0 g/dL) 3.7 Globulin (1.9 - 4.2 gm/dL) 3.0 Albumin/Globulin Ratio (1.1 - 2.2 %) 1.2 TSH (0.270 - 4.200 uIU/mL) 2.240 Thyroxine (T4) (4.5 - 10.9 ug/dL) 10.6 Coagulation PT (9.4 - 12.5 SEC) 53.9 *H INR (0.90 - 1.17) 4.87 *H APTT (25 - 37 SEC) 50 H Hematology CBC w Diff NO MAN DIFF REQ WBC (4.8 - 10.8 /CUMM) 11.6 H RBC (4.70 - 6.10 /CUMM) 5.68 Hgb (14.0 - 18.0 G/DL) 16.8 Hct (42 - 52 %) 51.8 MCV (80.0 - 94.0 FL) 91.1 MCH (27.0 - 31.0 PG) 29.5 MCHC (33.0 - 37.0 G/DL) 32.4 L RDW (11.5 - 14.5 %) 15.0 H Plt Count (130 - 400 /CUMM) 197 MPV (7.4 - 10.4 FL) 9.9 Gran % (42.2 - 75.2 %) 71.7 Lymphocytes % (20.5 - 51.1 %) 18.9 L Monocytes % (1.7 - 9.3 %) 7.8 Eosinophils % (0 - 5 %) 1.1 Basophils % (0.0 - 2.0 %) 0.5 Absolute Granulocytes (1.4 - 6.5 /CUMM) 8.3 H Absolute Lymphocytes (1.2 - 3.4 /CUMM) 2.2 Absolute Monocytes (0.10 - 0.60 /CUMM) 0.9 H Absolute Eosinophils (0.0 - 0.7 /CUMM) 0.1 Absolute Basophils (0.0 - 0.2 /CUMM) 0.1 EKG shows rapid atrial fibrillation. CXR: IMPRESSION: 1. Enlarged cardiomediastinal silhouette, may represent cardiomegaly versus pericardial effusion or combination thereof, given the difference in technique, appears similar to prior study dated 05/17/2018. 2. Superimposed likely mild CHF. A/P: 38-year-old male with past medical history significant for recently diagnosed atrial fibrillation, medication noncompliance, was discharged on Cardizem and Eliquis. Unfortunately Eliquis or any other newer agents is not covered by insurance. He has visited the emergency room and was prescribed Coumadin. His INR is supratherapeutic today. Patient is admitted with rapid atrial fibrillation, shortness of breath. Patient admitted to telemetry. Troponins will be trended. Appreciate cardiology input. Patient will be started back on oral Cardizem. Will be kept on low-dose diuretics. Please obtain echocardiogram. Hold Coumadin and follow INR in the morning. As mentioned in the cardiology note, his long-term anticoagulation will need to be discussed. He is a full code. DVT prophylaxis: INR supratherapeutic.
--- NOTE | 2018-06-06 11:47 | Cons- Cardiology ---
General Information and HPI Consulting Request Date of Consult: 06/06/18 Requested By: Gretchen Wilks MD Reason for Consult: Rapid atrial fibrillation Source of Information: patient Exam Limitations: poor historian History of Present Illness: The patient is a 58-year-old obese male who has a history of atrial fibrillation diagnosed approximately 1 month ago who now presents with shortness of breath. He was seen in the emergency room at [facility] in April. He was found to be in atrial fibrillation. He was abusive at that time and signed out AMA. He was and was given a prescription for diltiazem and Eliquis. He states that his insurance would not cover the Eliquis and therefore he did not fill either prescription. He then presented again a few weeks later with rapid atrial fibrillation. He refused to stay and was provided a prescription for Coumadin and diltiazem. He reportedly did fill the Coumadin prescription and has been taking it but recently ran out. Upon my questioning he denies taking any medications at all. He is more concerned about getting a leave of absence from work due to his shortness of breath. He denies chest pain, fever, chills, or sputum production. He does have a dry cough. He has noted ankle edema. He blames his atrial fibrillation on smoking cessation. He stopped smoking approximately 6 weeks ago. He denies alcohol or drug use. 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 He denies any other cardiac history. He never had an echocardiogram nor saw a gastroenterology nurse because he signed out AMA. In the ER he received IV and p.o. diltiazem along with IV digoxin and Lasix. His heart rate has improved. He was cantankerous in the emergency room and did not want to talk with multiple members of the ER staff. Allergies/Medications Allergies: Coded Allergies: No Known Allergies (06/06/18) Home Med List: Diltiazem Cd (Diltiazem ER) 120 MG CAP.ER.DEG 120 MG PO DAILY atrial fibrillation Warfarin Sodium (Coumadin) 5 MG TABLET 1 TAB PO DAILY A FIB TAKE 2 PILLS TADY, 1 1/2 PILLS TOMORROW AND THEN PILL DAILY Current Medications: Current Medications Sig/Guy Start time Last Medication Dose Route Stop Time Status Admin Acetaminophen 650 MG Q6P PRN 06/06 1100 AC PO Digoxin 0.25 MG ONCE ONE 06/06 1030 DC 06/06 IV 06/06 1031 1111 Digoxin 0.5 MG ONCE ONE 06/06 0915 DC 06/06 IV 06/06 Diltiazem HCl 30 MG Q6 06/06 1200 AC PO Diltiazem HCl 120 MG ONCE ONE 06/06 1030 DC 06/06 PO 06/06 1031 1111 Diltiazem HCl 0 .STK-MED ONE 06/06 09 DC .ROUTE Diltiazem HCl 20 MG ONCE ONE 06/06 0915 DC 06/06 IV PUSH 06/06 Diltiazem HCl 10 MG ONCE ONE 06/06 0845 DC 06/06 IV PUSH 06/06 0846 0838 Diltiazem HCl 0 .STK-MED ONE 06/06 0837 DC .ROUTE Furosemide 20 MG DAILY 06/06 1130 AC IV Oxycodone/ 1 TAB Q6P PRN 06/06 1100 AC Acetaminophen PO Review of Systems Review of Systems: Eyes no blurred or double vision Ears no deafness or ringing Nose and throat no recurrent sinusitis Lungs per history of present illness Heart per history of present illness Abdomen no nausea vomiting Musculoskeletal occasional muscle and joint pains Psych no anxiety or depression Neuro without recurrent headache or seizures Endocrine no heat or cold intolerance Past History Travel History Traveled to [place] past 21 day No Medical History Neurological: NONE EENT: NONE Cardiovascular: AFIB Respiratory: NONE Gastrointestinal: NONE Hepatic: NONE Renal: NONE Musculoskeletal: NONE Psychiatric: NONE Endocrine: NONE Blood Disorders: NONE Cancer(s): NONE 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 self Services at Home: None Primary Language: Palestinian ETOH Use: denies use Illicit Drug Use: denies illicit drug use Functional Ability ADLs Independent: dressing, eating, toileting, bathing. Ambulation: independent IADLs Independent: shopping, housework, finances, food prep, telephone, transportation , medication admin. Exam & Diagnostic Data Vital Signs and I&O Vital Signs Date Time Temp Pulse Resp B/P B/P Pulse O2 O2 Flow FiO2 Mean Ox Delivery Rate 06/06 1111 98.4 109 18 108/62 06/06 1056 98.4 109 18 108/62 98 Nasal 2.0L Cannula 06/06 941 98.6 134 18 110/62 06/06 0941 98.6 134 18 110/62 06/06 0940 98.6 134 18 110/62 98 Room Air 06/06 0838 160 122/90 06/06 0836 Room Air Room Air 06/06 0824 96.7 160 24 122/90 99 Room Air Room Air Intake & Output 06/06 0806/06 0000 06/05 0000 Intake Total 0 Output Total Balance 0 Intake, Oral 0 Patient 240 lb Weight Weight Reported by Patient Measurement Method Physical Exam: Patient is a well-developed obese male appearing in no acute distress HEENT is unremarkable Neck is supple there is no JVD Lungs few bibasilar rales Heart irregular rhythm S1 and S2 are normal no murmurs gallops or rubs Abdomen bowel sounds positive Extremities 2+ edema Neuro no focal deficits Skin no lesions Psych he is cantankerous but was cooperative for wv Lymph no adenopathy Labs/Josafat Results: Laboratory Tests 06/06 830 Chemistry Sodium (137 - 145 mmol/L) 140 Potassium (3.5 - 5.1 mmol/L) 3.9 Chloride (98 - 107 mmol/L) 106 Carbon Dioxide (22 - 30 mmol/L) 23 Anion Gap (5 - 16) 11 BUN (9 - 20 mg/dL) 19 Creatinine (0.7 - 1.2 mg/dL) 1.1 Estimated GFR (>60 ml/min) > 60 BUN/Creatinine Ratio (7 - 25 %) 17.3 Glucose (65 - 99 mg/dL) 162 H Calcium (8.4 - 10.2 mg/dL) 8.4 Magnesium (1.6 - 2.3 mg/dL) 2.0 Total Bilirubin (0.2 - 1.3 mg/dL) 2.2 H AST (17 - 59 U/L) 35 ALT (21 - 72 U/L) 33 Alkaline Phosphatase (< 127 U/L) 91 Troponin I (<0.11 ng/ml) 0.06 Total Protein (6.3 - 8.2 g/dL) 6.7 Albumin (3.5 - 5.0 g/dL) 3.7 Globulin (1.9 - 4.2 gm/dL) 3.0 Albumin/Globulin Ratio (1.1 - 2.2 %) 1.2 TSH (0.270 - 4.200 uIU/mL) Pending Thyroxine (T4) (4.5 - 10.9 ug/dL) Pending Coagulation PT (9.4 - 12.5 SEC) 53.9 *H INR (0.90 - 1.17) 4.87 *H APTT (25 - 37 SEC) 50 H Hematology CBC w Diff NO MAN DIFF REQ WBC (4.8 - 10.8 /CUMM) 11.6 H RBC (4.70 - 6.10 /CUMM) 5.68 Hgb (14.0 - 18.0 G/DL) 16.8 Hct (42 - 52 %) 51.8 MCV (80.0 - 94.0 FL) 91.1 MCH (27.0 - 31.0 PG) 29.5 MCHC (33.0 - 37.0 G/DL) 32.4 L RDW (11.5 - 14.5 %) 15.0 H Plt Count (130 - 400 /CUMM) 197 MPV (7.4 - 10.4 FL) 9.9 Gran % (42.2 - 75.2 %) 71.7 Lymphocytes % (20.5 - 51.1 %) 18.9 L Monocytes % (1.7 - 9.3 %) 7.8 Eosinophils % (0 - 5 %) 1.1 Basophils % (0.0 - 2.0 %) 0.5 Absolute Granulocytes (1.4 - 6.5 /CUMM) 8.3 H Absolute Lymphocytes (1.2 - 3.4 /CUMM) 2.2 Absolute Monocytes (0.10 - 0.60 /CUMM) 0.9 H Absolute Eosinophils (0.0 - 0.7 /CUMM) 0.1 Absolute Basophils (0.0 - 0.2 /CUMM) 0.1 Diagnostic Data EKG Results Atrial fibrillation with rapid ventricular response nonspecific ST-T wave changes CXR Results IMPRESSION: 1. Enlarged cardiomediastinal silhouette, may represent cardiomegaly versus pericardial effusion or combination thereof, given the difference in technique, appears similar to prior study dated 05/17/2018. 2. Superimposed likely mild CHF. Assessment/Plan Assessment/Plan 1. Atrial fibrillation with rapid ventricular response. This is not new onset as he was diagnosed with this in April but signed out AMA multiple times. The rapid ventricular response secondary to noncompliance with his medications. His shortness of breath is most likely secondary to his rapid atrial fibrillation. 2. Supratherapeutic INR 3. Obesity 4. Ex-smoker Recommendations 1. Patient will be admitted to telemetry for monitoring 2. I would hold his Coumadin secondary to supratherapeutic INR 3. I agree with continuing diltiazem for rate control along with Lasix to diurese 4. TSH is pending 5. Would obtain a BNP 6. Would obtain an echocardiogram to assess his overall LV function 7. I am certainly concerned that he will not follow up closely and obtain outpatient INRs in order to dose his Coumadin appropriately. His insurance will not cover any of the NOAC's. We will have to determine whether indeed he is a candidate for any anticoagulation if he refuses to follow-up. 8. I would not consider a cardioversion at this time until he is deemed compliant. Thank you for allowing [facility] to participate in the care of your patient. Consult Acknowledgment - Thank you for your consult request.
[2018-06-06 14:57] VITALS: BP 114/60
--- NOTE | 2018-06-06 20:22 | ECHOCARDIOGRAM REPORT ---
FRAN MADRIGAL Age: 58 : 1960 Gender: M Exam Date: 06/06/2018 11:53 Exam Location: ER Ht (in): 74 Wt (lb): 240 BSA: 2.41 BP: 108 / 62 Ordering Physician: Meri Coats MD Referring Physician: Meri Coats MD Technologist: Leila Charles [facility] Room Number: ER Indications: Cardiomyopathy, unspecified Rhythm: Technical Quality: Technically difficult study FINDINGS Left Ventricle Left ventricle not well visualized. Mild left ventricular dilatation. Normal left ventricular wall thickness. Severely reduced global left ventricular systolic function with anteroseptal akinesis. Left ventricular ejection fraction is estimated at 20-25 %. Right Ventricle Right ventricle not well visualized. Right Atrium Right atrium not well visualized. Left Atrium Mild left atrial dilatation. Mitral Valve Mitral valve not well visualized, grossly normal. Mild mitral regurgitation. Aortic Valve No aortic stenosis. Trileaflet aortic valve. Tricuspid Valve Tricuspid valve not well visualized. Mild tricuspid regurgitation. Unable to estimate the right ventricular systolic pressure. Pulmonic Valve Pulmonic valve not well visualized. Pericardium No pericardial effusion. Great Vessels Normal size aortic root. CONCLUSIONS Technically difficult study. Left ventricle not well visualized. Mild left ventricular dilatation. Normal left ventricular wall thickness. Severely reduced global left ventricular systolic function with anteroseptal akinesis. Left ventricular ejection fraction is estimated at 20-25 %. Right ventricle not well visualized. Mild left atrial dilatation. Unable to estimate the right ventricular systolic pressure. No pericardial effusion. Calixto Persaud M.D. (Electronically Signed) Final Date: 06 June 2018 20:17 MEASUREMENTS (Male / Female) Normal Values 2D ECHO LV Diastolic Diameter PLAX 6.5 cm 4.2 - 5.9 / 3.9 - 5.3 cm LV Systolic Diameter PLAX 5.2 cm 2.1 - 4.0 cm LV Fractional Shortening PLAX 20.0 % 25 - 46 % LV Ejection Fraction 2D Teich 40.0 % IVS Diastolic Thickness 1.0 cm LVPW Diastolic Thickness 1.1 cm LV Relative Wall Thickness 0.3 LVOT Diameter 2.0 cm Aortic Root Diameter 3.4 cm LA Systolic Diameter LX 4.8 cm 3.0 - 4.0 / 2.7 - 3.8 cm DOPPLER AV Peak Velocity 90.9 cm/s AV Peak Gradient 3.3 mmHg LVOT Peak Velocity 43.9 cm/s LVOT Peak Gradient 0.8 mmHg AV Area Cont Eq pk 1.5 cm Mitral E Point Velocity 101.2 cm/s MV Deceleration Time 267.0 ms TR Peak Velocity 289.0 cm/s TR Peak Gradient 33.4 mmHg LV E' Lateral Velocity 9.9 cm/s Mitral E to LV E' Lateral Ratio 10.2 LV E' Septal Velocity 7.9 cm/s Mitral E to LV E' Septal Ratio 12.8
[2018-06-06 22:00] VITALS: BP 118/64
[2018-06-07 06:56] VITALS: BP 128/80
[2018-06-07 08:09] LABS: ABSOLUTE BASOPHIL COUNT 0 /CUMM (0.0-0.2); ABSOLUTE EOSINOPHIL COUNT 0.2 /CUMM (0.0-0.7); ABSOLUTE GRANULOCYTE CT 8.2 /CUMM (1.4-6.5); ABSOLUTE LYMPH COUNT 1.6 /CUMM (1.2-3.4); ABSOLUTE MONOCYTE COUNT 0.9 /CUMM (0.10-0.60); BASOPHIL % 0.3 % (0.0-2.0); EOSINOPHIL % 1.6 % (0-5); GRANULOCYTE % 75.2 % (42.2-75.2); HEMATOCRIT 47.4 % (42-52); MEAN CORPUSCULAR HGB 29.4 PG (27.0-31.0); MEAN CORPUSCULAR HGB CONC 32.8 G/DL (33.0-37.0); MEAN CORPUSCULAR VOLUME 89.4 FL (80.0-94.0); MEAN PLATELET VOLUME 10.1 FL (7.4-10.4); PLATELET COUNT 187 /CUMM (130-400); RBC DISTRIBUTION WIDTH 15.1 % (11.5-14.5); WHITE BLOOD CELL COUNT 10.9 /CUMM (4.8-10.8)
[2018-06-07 08:15] LABS: PT 30.3 SEC (9.4-12.5)
--- NOTE | 2018-06-07 08:26 | PN- Housestaff ---
Subjective Follow-up For: Atrial fibrillation with rapid ventricular response. Acute on chronic systolic heart failure. Tele-Events Since Last Visit: Remained in A. fib with heart rate between [id number] with pauses Subjective: No overnight events. Patient remained afebrile. Seen and examined this morning. Patient denied chest pain, palpitation, shortness of breath, nausea, vomiting, chill, fever, abdominal pain and dysuria. Patient is on room air maintaining saturation 94%. Review of Systems Constitutional: Denies: chills, fever. EENTM: Reports: no symptoms. Cardiovascular: Denies: chest pain, palpitations. Respiratory: Denies: cough, short of breath, sputum production. Gastrointestinal: Denies: abdominal pain, diarrhea, nausea, vomiting. Genitourinary: Reports: no symptoms. Musculoskeletal: Reports: no symptoms. Neurological/Psychological: Reports: no symptoms. Objective Last 24 Hrs of Vital Signs/I&O Vital Signs Date Time Temp Pulse Resp B/P B/P Pulse O2 O2 Flow FiO2 Mean Ox Delivery Rate 06/07 0656 98.1 101 20 128/80 94 Room Air 06/07 0608 112 128/80 06/06 2242 Room Air 06/06 2239 89 122/80 06/06 2200 98.4 109 20 118/64 95 Room Air 06/06 1713 108 114/60 06/06 1457 98.7 108 20 114/60 96 Room Air 06/06 1244 110 110/62 08 1111 98.4 109 18 108/62 08 1056 98.4 109 18 108/62 98 Nasal 2.0L Cannula 06/06 941 98.6 134 18 110/62 06/06 0941 98.6 134 18 110/62 06/06 0940 98.6 134 18 110/62 98 Room Air Intake & Output 06/07 1600 06/07 0800 06/07 0000 Intake Total 720 Output Total 300 600 Balance 420 -600 Intake, Oral 720 Output, Urine 300 600 Patient 297 lb Weight Weight Bed scale Measurement Method Physical Exam General Appearance: Alert, Oriented X3, Cooperative Skin Temp/Moisture Exam: Warm/Dry Sepsis Skin Exam (color): Normal for Ethnicity HEENT: Atraumatic, PERRLA, EOMI Neck: Supple Cardiovascular: Normal S1, Normal S2 Lungs: Clear to Auscultation Abdomen: Soft, No Tenderness Neurological: Normal Speech, Strength at 5/5 X4 Ext, Normal Tone Extremities: No Edema Assessment/Plan Assessment: 58 YO M with PMH significant for atrial fibrillation on Coumadin presented to the hospital with a chief complaint of worsening shortness of breath and palpitations for 1 day. Seeing the patient on telemetry floor for following problems. Acute on chronic systolic heart failure: -Patient presented with shortness of breath and his proBNP was elevated compared to the previous month. -Tachycardia induced cardiomyopathy. -On echocardiogram his ejection fraction was 2025% with anteroseptal akinesia -Continue Lasix 20 mg IV -Continue monitoring his input and output and daily weight -Follow-up cardiology recommendations. History of newly diagnosed atrial fibrillation: -Patient was recently diagnosed with atrial fibrillation and he was started on diltiazem for rate control and Coumadin for anticoagulation to prevent stroke. -Patient is noncompliant with medication. -On presentation he was found to have A. fib with rapid ventricular response. -Diltiazem has been discontinued due to new cardiomyopathy, we will start metoprolol 25 mg twice daily and lisinopril 5 mg daily. -Patient may need MENDOZA cardioversion but will need to confirm his compliance to medication. -Outpatient follow-up for evaluation of sleep apnea. -Continue Coumadin according to INR to keep it between 23 Supratherapeutic INR: -On presentation patient's INR was 4.87 -His Coumadin was held -Today his INR is 2.75 -Patient will get 2 mg of Coumadin today. DVT prophylaxis: Mechanical and patient is already on Coumadin CODE STATUS: Full code Problem List: 1. Atrial fibrillation with RVR 2. CHF (congestive heart failure) Pain Ratin Pain Location: NONE Pain Goal: Remain pain free Pain Plan: PAIN PATHWAY Tomorrow's Labs & Rationales: CBC/BEP/INR
--- NOTE | 2018-06-07 10:35 | PN- Cardiology ---
Subjective Subjective: Patient still complains of mild shortness of breath and palpitations. He is concerned about getting in note stating that he is unable to work and what will transpired regarding his upcoming eviction. Review of Systems: Eyes no blurred or double vision Ears no deafness or ringing Nose and throat no recurrent sinusitis Lungs per history of present illness Heart per history of present illness Abdomen no nausea vomiting Musculoskeletal occasional muscle and joint pains Psych no anxiety or depression Neuro without recurrent headache or seizures Endocrine no heat or cold intolerance Objective Vital Signs and I&Os Vital Signs Date Time Temp Pulse Resp B/P B/P Pulse O2 O2 Flow FiO2 Mean Ox Delivery Rate 06/07 0656 98.1 101 20 128/80 94 Room Air 06/07 0608 112 128/80 06/06 2242 Room Air 06/06 2239 89 122/80 06/06 2200 98.4 109 20 118/64 95 Room Air 06/06 1713 108 114/60 06/06 1457 98.7 108 20 114/60 96 Room Air 06/06 1244 110 110/62 06/06 1111 98.4 109 18 108/62 06/06 1056 98.4 109 18 108/62 98 Nasal 2.0L Cannula Intake & Output 06/07 1600 06/07 0000 06/06 1600 06/06 0800 06/06 0000 Intake Total 720 400 Output Total 300 600 600 Balance 420 -600 -200 Intake, Oral 720 400 Output, Urine 300 600 600 Patient 297 lb 319 lb Weight Weight Bed scale Bed scale Measurement Method Physical Exam: Patient is a well-developed obese male appearing in no acute distress HEENT is unremarkable Neck is supple there is no JVD Lungs few bibasilar rales Heart irregular rhythm S1 and S2 are normal no murmurs gallops or rubs Abdomen bowel sounds positive Extremities without edema Neuro without focal deficits Psych no anxiety or depression Lymph no adenopathy Current Medications: Current Medications Sig/Guy Start time Last Medication Dose Route Stop Time Status Admin Acetaminophen 650 MG Q6P PRN 06/06 1100 AC PO Digoxin 0.25 MG ONCE ONE 06/06 1030 DC 06/06 IV 06/06 1031 1111 Diltiazem HCl 30 MG Q6 06/06 1200 AC 06/07 PO 0608 Diltiazem HCl 120 MG ONCE ONE 06/06 1030 DC 06/06 PO 06/06 1031 1111 Furosemide 20 MG DAILY 06/06 1130 AC 06/07 IV 0832 Oxycodone/ 1 TAB Q6P PRN 06/06 1100 AC Acetaminophen PO Potassium Chloride 40 MEQ ONCE ONE 06/07 930 DC PO 06/07 0931 Warfarin Sodium 2 MG COUMADIN 1700 ONE 06/07 1700 AC PO 06/07 1701 Results Last 48 Hrs of Labs/Mics: Laboratory Tests 06/07/18 0630: Anion Gap 6, Estimated GFR > 60, BUN/Creatinine Ratio 22.5, Magnesium 2.0, PT 30.3 H, INR 2.75 H, CBC w Diff NO MAN DIFF REQ, RBC 5.30, MCV 89.4, MCH 29.4, MCHC 32.8 L, RDW 15.1 H, MPV 10.1, Gran % 75.2, Lymphocytes % 14.8 L, Monocytes % 8.1, Eosinophils % 1.6, Basophils % 0.3, Absolute Granulocytes 8.2 H, Absolute Lymphocytes 1.6, Absolute Monocytes 0.9 H, Absolute Eosinophils 0.2 , Absolute Basophils 0 06/06/18 2000: Troponin I 0.06 06/06/18 1405: Troponin I 0.06 06/06/18 0830: Anion Gap 11, Estimated GFR > 60, BUN/Creatinine Ratio 17.3, Glucose 162 H, Calcium 8.4, Magnesium 2.0, Total Bilirubin 2.2 H, AST 35, ALT 33, Alkaline Phosphatase 91, Troponin I 0.06, [id number] Pept 6190 H, Total Protein 6.7, Albumin 3.7, Globulin 3.0, Albumin/Globulin Ratio 1.2, TSH 2.240, Thyroxine (T4) 10.6, PT 53.9 *H, INR 4.87 *H, APTT 50 H, CBC w Diff NO MAN DIFF REQ, RBC 5.68, MCV 91.1, MCH 29.5, MCHC 32.4 L, RDW 15.0 H, MPV 9.9, Gran % 71.7, Lymphocytes % 18.9 L, Monocytes % 7.8, Eosinophils % 1.1, Basophils % 0.5, Absolute Granulocytes 8.3 H, Absolute Lymphocytes 2.2, Absolute Monocytes 0.9 H, Absolute Eosinophils 0.1, Absolute Basophils 0.1 Telemetry personally reviewed rapid atrial fibrillation with up to 3.5 second pauses during sleep Recent Imaging Studies: Echocardiogram CONCLUSIONS Technically difficult study. Left ventricle not well visualized. Mild left ventricular dilatation. Normal left ventricular wall thickness. Severely reduced global left ventricular systolic function with anteroseptal akinesis. Left ventricular ejection fraction is estimated at 20-25 %. Right ventricle not well visualized. Mild left atrial dilatation. Unable to estimate the right ventricular systolic pressure. No pericardial effusion. Calixto Persaud M.D. Assessment/Plan Assessment/Plan 1. Rapid atrial fibrillation with possible sick sinus syndrome (tachy/megan). His heart rate is improved. His bradycardia may be secondary to sleep apnea given his obesity versus the AV melva blockers he received earlier in the day. 2. 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 Obesity 4. History of noncompliance with medications 5. Ex-smoker Recommendations 1. I would discontinue diltiazem and changed to metoprolol 25 mg twice daily given newly diagnosed cardiomyopathy 3. Would add lisinopril 5 milligrams daily 3. Resume Coumadin now that his INR is therapeutic 4. He will require a MENDOZA cardioversion but will need to confirm his willingness for compliance with medication, routine INRs, and outpatient follow-up. 5. Continue to monitor on telemetry for bradycardia 6. Would recommend evaluation for obstructive sleep apnea as an outpatient Continue telemetry? Yes
--- NOTE | 2018-06-07 13:03 | PN- Att Addend ---
Attending Addendum Attending Brief Note Patient seen and examined, feels ok. HR slightly better. Remains in Afib. Vital Signs Date Time Temp Pulse Resp B/P B/P Pulse O2 O2 Flow FiO2 Mean Ox Delivery Rate 06/07 0656 98.1 101 20 128/80 94 Room Air 06/07 0608 112 128/80 06/06 2242 Room Air 06/06 2239 89 122/80 06/06 2200 98.4 109 20 118/64 95 Room Air 06/06 1713 108 114/60 06/06 1457 98.7 108 20 114/60 96 Room Air on exam; aox3, nad. cv; s1,s2, irregular, tachy. resp; clear abd; soft, nt, bs+ ext; 1+ edema Laboratory Tests 06/07 2000 1405 Chemistry Sodium (137 - 145 mmol/L) 140 Potassium (3.5 - 5.1 mmol/L) 3.6 Chloride (98 - 107 mmol/L) 107 Carbon Dioxide (22 - 30 mmol/L) 27 Anion Gap (5 - 16) 6 BUN (9 - 20 mg/dL) 18 Creatinine (0.7 - 1.2 mg/dL) 0.8 Estimated GFR (>60 ml/min) > 60 BUN/Creatinine Ratio (7 - 25 %) 22.5 Magnesium (1.6 - 2.3 mg/dL) 2.0 Troponin I (<0.11 ng/ml) 0.06 0.06 Coagulation PT (9.4 - 12.5 SEC) 30.3 H INR (0.90 - 1.17) 2.75 H Hematology CBC w Diff NO MAN DIFF REQ WBC (4.8 - 10.8 /CUMM) 10.9 H RBC (4.70 - 6.10 /CUMM) 5.30 Hgb (14.0 - 18.0 G/DL) 15.6 Hct (42 - 52 %) 47.4 MCV (80.0 - 94.0 FL) 89.4 MCH (27.0 - 31.0 PG) 29.4 MCHC (33.0 - 37.0 G/DL) 32.8 L RDW (11.5 - 14.5 %) 15.1 H Plt Count (130 - 400 /CUMM) 187 MPV (7.4 - 10.4 FL) 10.1 Gran % (42.2 - 75.2 %) 75.2 Lymphocytes % (20.5 - 51.1 %) 14.8 L Monocytes % (1.7 - 9.3 %) 8.1 Eosinophils % (0 - 5 %) 1.6 Basophils % (0.0 - 2.0 %) 0.3 Absolute Granulocytes (1.4 - 6.5 /CUMM) 8.2 H Absolute Lymphocytes (1.2 - 3.4 /CUMM) 1.6 Absolute Monocytes (0.10 - 0.60 /CUMM) 0.9 H Absolute Eosinophils (0.0 - 0.7 /CUMM) 0.2 Absolute Basophils (0.0 - 0.2 /CUMM) 0 A/P: 38-year-old male with past medical history significant for recently diagnosed atrial fibrillation, medication noncompliance, was discharged on Cardizem and Eliquis. Unfortunately Eliquis or any other newer agents is not covered by insurance. He has visited the emergency room and was prescribed Coumadin. His INR is supratherapeutic today. Patient is admitted with rapid atrial fibrillation, shortness of breath. Now found to have new systolic dysfunction. Please follow cardiology recommendations in terms of switching calcium channel latrice to beta-latrice secondary to cardiomyopathy resume Coumadin 5 mg today and follow INR in the morning. Continue diuretics and LESLIE inhibitor. Pt needs to see accounts payable specialist tomorrow.
[2018-06-07 14:09] VITALS: BP 136/90
[2018-06-07 22:10] VITALS: BP 128/80
[2018-06-08 06:59] VITALS: BP 134/90
--- NOTE | 2018-06-08 07:56 | PN- Housestaff ---
Bon Garcia 06/08/18 0756: Subjective Follow-up For: Atrial fibrillation with rapid ventricular response Supratherapeutic INR Subjective: Overnight patient was in atrial fibrillation with heart rate ranged between 91- 108, at 0242 patient had a 4 second pause with a drop in heart rate. 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 Patient denies chest pain, palpitations, shortness of breath, dizziness, weakness. Review of Systems Constitutional: Denies: chills, diaphoresis, fever. Cardiovascular: Denies: chest pain, palpitations. Respiratory: Denies: cough, short of breath. Objective Last 24 Hrs of Vital Signs/I&O Vital Signs Date Time Temp Pulse Resp B/P B/P Pulse O2 O2 Flow FiO2 Mean Ox Delivery Rate 06/08 0851 89 134/90 06/08 0851 89 134/90 06/08 0659 98.4 89 22 134/90 96 Room Air 06/07 2355 116 128/64 06/07 2210 98.1 85 24 128/80 96 Room Air 06/07 1556 83 136/90 06/07 1555 83 136/90 06/07 1409 97.6 83 22 136/90 96 Room Air Intake & Output 06/08 1600 06/08 0800 06/08 0000 Intake Total 400 600 Output Total 500 Balance 400 100 Intake, Oral 400 600 Output, Urine 500 Physical Exam General Appearance: Alert, Oriented X3, Cooperative Cardiovascular: Normal S1, Normal S2, irregular rhythm Lungs: Clear to Auscultation, Normal Air Movement Abdomen: Normal Bowel Sounds, Soft, No Tenderness Extremities: No Cyanosis, No Edema, Normal Pulses Vascular: Normal Pulses, Pulses Symmetrical Assessment/Plan Assessment: 58 YO M with PMH significant for atrial fibrillation on Coumadin presented to the hospital with a chief complaint of worsening shortness of breath and palpitations for 1 day. Seeing the patient on telemetry floor for following problems. #Acute on chronic systolic heart failure: Patient presented with shortness of breath and his proBNP was elevated compared to the previous month. Echocardiogram showed an ejection fraction of 2025% with anteroseptal akinesia. -Continue Lasix 20 mg IV -Continue monitoring his input and output and daily weight -Follow-up cardiology recommendations. #History of newly diagnosed atrial fibrillation: Patient is noncompliant with medication. Patient was recently diagnosed with atrial fibrillation and he was started on diltiazem for rate control and Coumadin for anticoagulation to prevent stroke. On presentation he was found to have A. fib with rapid ventricular response. -Diltiazem has been discontinued due to new cardiomyopathy, patient was started metoprolol 25 mg twice daily - Increased lisinopril 10 mg daily. Patient is scheduled to undergo MENDOZA cardioversion tomorrow 06/09/2018 -Patient will require outpatient follow-up for evaluation of sleep apnea. -Continue Coumadin according to INR to keep it between 23 #Supratherapeutic INR: Patient was taking coumadin 5mg since May 30, without monitoring his INR.On presentation patient's INR was 4.87. INR Today is 1.93. -Give 5mg Coumadin DVT prophylaxis: Mechanical and patient is already on Coumadin CODE STATUS: Full code Problem List: 1. CHF (congestive heart failure) Pain Ratin Pain Location: n/a Pain Goal: Remain pain free Pain Plan: tylenol Tomorrow's Labs & Rationales: none Efe RANDLEGretchen 06/08/18 1354: Attending MD Review Statement Attending Statement Attending MD Statement: examined this patient, discuss w/resident/PA/REGULATED PROGRAM MANAGER, agreed w/resident/PA/REGULATED PROGRAM MANAGER, reviewed EMR data (avail), discussed with nursing, discussed with case mgmt, reviewed images, amended to note Attending Assessment/Plan: Patient seen and examined, overall doing well. Patient had a 4 second pause overnight. Currently is on a beta-latrice. Blood pressure still on the higher side. Vital Signs Date Time Temp Pulse Resp B/P B/P Pulse O2 O2 Flow FiO2 Mean Ox Delivery Rate 06/08 0851 89 134/90 06/08 0851 89 134/90 06/08 0659 98.4 89 22 134/90 96 Room Air 06/07 2355 116 128/64 06/07 2210 98.1 85 24 128/80 96 Room Air 06/07 1556 83 136/90 06/07 1555 83 136/90 06/07 1409 97.6 83 22 136/90 96 Room Air on exam; aox3, nad. cv; s1,s2, irregular. resp; clear abd; soft, nt, bs+ ext; 1+ edema Laboratory Tests 06/08 0635 Chemistry Sodium (137 - 145 mmol/L) 140 Potassium (3.5 - 5.1 mmol/L) 4.0 Chloride (98 - 107 mmol/L) 106 Carbon Dioxide (22 - 30 mmol/L) 26 Anion Gap (5 - 16) 7 BUN (9 - 20 mg/dL) 18 Creatinine (0.7 - 1.2 mg/dL) 0.8 Estimated GFR (>60 ml/min) > 60 BUN/Creatinine Ratio (7 - 25 %) 22.5 Coagulation PT (9.4 - 12.5 SEC) 21.2 H INR (0.90 - 1.17) 1.93 H Hematology CBC w Diff NO MAN DIFF REQ WBC (4.8 - 10.8 /CUMM) 10.6 RBC (4.70 - 6.10 /CUMM) 5.48 Hgb (14.0 - 18.0 G/DL) 16.3 Hct (42 - 52 %) 49.5 MCV (80.0 - 94.0 FL) 90.3 MCH (27.0 - 31.0 PG) 29.6 MCHC (33.0 - 37.0 G/DL) 32.8 L RDW (11.5 - 14.5 %) 15.3 H Plt Count (130 - 400 /CUMM) 182 MPV (7.4 - 10.4 FL) 10.6 H Gran % (42.2 - 75.2 %) 70.7 Lymphocytes % (20.5 - 51.1 %) 18.5 L Monocytes % (1.7 - 9.3 %) 8.5 Eosinophils % (0 - 5 %) 1.9 Basophils % (0.0 - 2.0 %) 0.4 Absolute Granulocytes (1.4 - 6.5 /CUMM) 7.5 H Absolute Lymphocytes (1.2 - 3.4 /CUMM) 2.0 Absolute Monocytes (0.10 - 0.60 /CUMM) 0.9 H Absolute Eosinophils (0.0 - 0.7 /CUMM) 0.2 Absolute Basophils (0.0 - 0.2 /CUMM) 0 A/P: 38-year-old male with past medical history significant for recently diagnosed atrial fibrillation, medication noncompliance, was discharged on Cardizem and Eliquis. Unfortunately Eliquis or any other newer agents is not covered by insurance. He has visited the emergency room and was prescribed Coumadin. His INR is supratherapeutic today. Patient is admitted with rapid atrial fibrillation, shortness of breath. Now found to have new systolic dysfunction. Appreciate cardiology follow-up. Beta-latrice dose remains the same and lisinopril will be increased. Etiology plans due to MENDOZA cardioversion tomorrow. Patient remains on Coumadin. Please dose Coumadin at 5 mg today and recheck INR in the morning. Patient to see hardwood flooring specialist for his insurance problems. DVT prophylaxis: Coumadin.
[2018-06-08 08:11] LABS: PT 21.2 SEC (9.4-12.5)
[2018-06-08 08:16] LABS: ABSOLUTE BASOPHIL COUNT 0 /CUMM (0.0-0.2); ABSOLUTE EOSINOPHIL COUNT 0.2 /CUMM (0.0-0.7); ABSOLUTE GRANULOCYTE CT 7.5 /CUMM (1.4-6.5); ABSOLUTE MONOCYTE COUNT 0.9 /CUMM (0.10-0.60); BASOPHIL % 0.4 % (0.0-2.0); EOSINOPHIL % 1.9 % (0-5); GRANULOCYTE % 70.7 % (42.2-75.2); HEMATOCRIT 49.5 % (42-52); MEAN CORPUSCULAR HGB 29.6 PG (27.0-31.0); MEAN CORPUSCULAR HGB CONC 32.8 G/DL (33.0-37.0); MEAN CORPUSCULAR VOLUME 90.3 FL (80.0-94.0); MEAN PLATELET VOLUME 10.6 FL (7.4-10.4); PLATELET COUNT 182 /CUMM (130-400); RBC DISTRIBUTION WIDTH 15.3 % (11.5-14.5); RED BLOOD CELL CT 5.48 /CUMM (4.70-6.10); WHITE BLOOD CELL COUNT 10.6 /CUMM (4.8-10.8)
--- NOTE | 2018-06-08 11:31 | PN- Cardiology ---
Subjective Subjective: Patient seen at bedside. He denies chest pain, palpitations. He denies dyspnea , however he has not gotten out of bed to walk around. He appears somewhat agitated. However he states that he agrees to continue taking his medications, including Coumadin, and be compliant with routine INR checks once he is an outpatient. Objective Vital Signs and I&Os Vital Signs Date Time Temp Pulse Resp B/P B/P Pulse O2 O2 Flow FiO2 Mean Ox Delivery Rate 06/08 0851 89 134/90 06/08 0851 89 134/90 06/08 0659 98.4 89 22 134/90 96 Room Air 06/07 2355 116 128/64 06/07 2210 98.1 85 24 128/80 96 Room Air 06/07 1556 83 136/90 06/07 1555 83 136/90 06/07 1409 97.6 83 22 136/90 96 Room Air Intake & Output 06/08 1600 06/08 0800 06/08 0000 06/07 1600 06/07 0800 06/07 0000 Intake Total 400 600 600 720 Output Total 500 1400 300 600 Balance 400 100 -800 420 -600 Intake, Oral 400 600 600 720 Output, Urine 500 1400 300 600 Patient 134.717 kg Weight Weight Bed scale Measurement Method Physical Exam: General: no apparent distress, mildly agitated HEENT: NCAT, NO JVD Heart: distant heart sounds, s1s2, irregular rhythm Lungs: CTA b/l Abd: soft, nt, obese Ext: 1+ pitting edema b/l LE to upper shins Current Medications: Current Medications Sig/Guy Start time Last Medication Dose Route Stop Time Status Admin Acetaminophen 650 MG Q6P PRN 06/06 1100 AC PO Diltiazem HCl 30 MG Q6 06/06 1200 DC 06/07 PO 0608 Furosemide 20 MG DAILY 06/06 1130 AC 06/08 IV 0851 Lisinopril 10 MG DAILY 06/09 0900 UNVr PO Lisinopril 5 MG DAILY 06/07 1153 DC 06/08 PO 0851 Metoprolol Tartrate 25 MG BID 06/07 1153 AC 06/08 PO 0851 Oxycodone/ 1 TAB Q6P PRN 06/06 1100 AC Acetaminophen PO Potassium Chloride 20 MEQ ONCE ONE 06/07 1345 DC 06/07 PO 06/07 1346 1555 Warfarin Sodium 5 MG COUMADIN 1700 ONE 06/08 1700 AC PO 06/08 1701 Warfarin Sodium 2 MG COUMADIN 1700 ONE 06/07 1700 DC 06/07 PO 06/07 1701 1700 Results Last 48 Hrs of Labs/Mics: Laboratory Tests 06/08/18 0635: Anion Gap 7, Estimated GFR > 60, BUN/Creatinine Ratio 22.5, PT 21.2 H, INR 1.93 H, CBC w Diff NO MAN DIFF REQ, RBC 5.48, MCV 90.3, MCH 29.6, MCHC 32.8 L, RDW 15.3 H, MPV 10.6 H, Gran % 70.7, Lymphocytes % 18.5 L, Monocytes % 8.5, Eosinophils % 1.9, Basophils % 0.4, Absolute Granulocytes 7.5 H, Absolute Lymphocytes 2.0, Absolute Monocytes 0.9 H, Absolute Eosinophils 0.2, Absolute Basophils 0 06/07/18 0630: Anion Gap 6, Estimated GFR > 60, BUN/Creatinine Ratio 22.5, Magnesium 2.0, PT 30.3 H, INR 2.75 H, CBC w Diff NO MAN DIFF REQ, RBC 5.30, MCV 89.4, MCH 29.4, MCHC 32.8 L, RDW 15.1 H, MPV 10.1, Gran % 75.2, Lymphocytes % 14.8 L, Monocytes % 8.1, Eosinophils % 1.6, Basophils % 0.3, Absolute Granulocytes 8.2 H, Absolute Lymphocytes 1.6, Absolute Monocytes 0.9 H, Absolute Eosinophils 0.2 , Absolute Basophils 0 06/06/18 2000: Troponin I 0.06 06/06/18 1405: Troponin I 0.06 Recent Imaging Studies: TTE 06/06/2018 Left Ventricle Left ventricle not well visualized. Mild left ventricular dilatation. Normal left ventricular wall thickness. Severely reduced global left ventricular systolic function with anteroseptal akinesis. Left ventricular ejection fraction is estimated at 20-25 %. telemetry personally reviewed: Atrial fibrillation, periods of RVR to 150s bpm, overnight bradycardic to as low as around 40 bpm, occasional pauses while bradycardic longest 4.6 seconds, currently in atrial fibrillation around 110-115 bpm Assessment/Plan Assessment/Plan 1. Rapid atrial fibrillation with possible sick sinus syndrome (tachy/megan). His heart rate is improved. His bradycardia may be secondary to sleep apnea given his obesity and timing of bradycardia/pauses appear to be overnight when the patient is sleeping 2. 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 Obesity 4. History of noncompliance with medications 5. Ex-smoker The patient states unequivocally that he will be compliant with anticoagulation and follow-up as an outpatient. We will do MENDOZA guided cardioversion tomorrow. Patient will likely also require an outpatient rhythm monitor to evaluate his bradycardia going forward. Although the etiology of the patient's newly diagnosed systolic dysfunction is likely tachycardia induced cardiomyopathy, an ischemic workup is still warranted. However this can be pursued as an outpatient. Recommendations 1. Continue with metoprolol; would not increase metoprolol as the patient becomes bradycardic, typically overnight 3. Would increase lisinopril to 10 milligrams daily; trend BUN/Cr and K, trend BP 3. C/w Coumadin, goal INR 2-3 4. MENDOZA guided cardioversion tomorrow; the patient states that he will be compliant with anticoagulation and routine follow-up as an outpatient, NPO at midnight 5. Continue to monitor on telemetry for bradycardia 6. Would recommend evaluation for obstructive sleep apnea as an outpatient 7. Please check a lipid profile Continue telemetry? Yes
[2018-06-08 16:26] VITALS: BP 130/70
[2018-06-08 16:27] VITALS: BP 130/70
[2018-06-08 21:00] VITALS: BP 108/68
[2018-06-08] MEDS ORDERED: LISINOPRIL10 M1 PO (22:25)
[2018-06-08] MEDS ORDERED: COUMADIN5 M2 PO (22:25)
[2018-06-08] MEDS ORDERED: METOPROLOL TART25 M1 PO (22:25)
--- NOTE | 2018-06-08 22:28 | Patient Discharge Instructions ---
Discharge Instructions General Discharge Information You were seen/treated for: ATRIAL FIBRILLATION CHF You had these procedures: MENDOZA CONVERSION Watch for these problems: FEVER, CHEST PAIN, PAPITATIONS Special Instructions: Please follow up with your PCP within one week after discharge Please call and make an appointment with your monkey trainer within one week after discharge Please F/U with coumadin clinic for monitoring of your INR You will need stress test for cardiac risk stratification as an outpatient through your monkey trainer. It is recommended that you have outpatient sleep study done to rule out obstructive sleep apnea Diet Continue normal diet: Yes Activity Full Activity/No Limits: Yes Acute Coronary Syndrome Inclusion Criteria At DC or during hospital stay patient has or had the following: ACS DIAGNOSIS No Discharge Core Measures Meds if any: Prescribed or Continued at Discharge Meds if any: NOT Prescribed or Continued at Discharge Congestive Heart Failure Inclusion Criteria At DC or during hospital stay patient has or had the following: CHF DIAGNOSIS Yes Discharge Core Measures Meds if any: Prescribed or Continued at Discharge LESLIE/ARB for EF <40% Yes Meds if any: NOT Prescribed or Continued at Discharge Cerebrovascular accident Inclusion Criteria At DC or during hospital stay patient has or had the following: CVA/TIA Diagnosis No Discharge Core Measures Meds if any: Prescribed or Continued at Discharge Meds if any: NOT Prescribed or Continued at Discharge Venous thromboembolism Inclusion Criteria VTE Diagnosis No VTE Type NONE VTE Confirmed by (Test) NONE Discharge Core Measures - Per Current guidelines, there needs to be overlap - treatment for the first 5 days of Warfarin therapy. - If discharged on Warfarin prior to 5 days of - overlap therapy, the patient will need to be - assessed for post discharge needs including - *Post discharge parental anticoagulation - *Warfarin and/or parental anticoagulation education - *Follow up date to check INR post discharge At least 5 days overlap therapy as Inpatient Yes Meds if any: Prescribed or Continued at Discharge Note: Overlap Therapy is Warfarin and Anticoagulant Meds if any: NOT Prescribed or Continued at Discharge
--- NOTE | 2018-06-09 05:05 | PN- Housestaff ---
See Addendum Subjective Follow-up For: Atrial fibrillation with rapid ventricular response Supratherapeutic INR Subjective: Patient seen at the bedside, asked provider to return in 20 minutes, and then was seen and examined sitting in the bedside chair. He seems to be in good spirits, and looking forward to the MENDOZA and cardioversion. He states he is still feeling the "jello" feeling in his chest, and hopes that it will go away after the procedure. Otherwise, no complaints. Review of Systems Constitutional: Reports: no symptoms, see HPI. Objective Last 24 Hrs of Vital Signs/I&O Vital Signs Date Time Temp Pulse Resp B/P B/P Pulse O2 O2 Flow FiO2 Mean Ox Delivery Rate 06/08 2102 Room Air 06/08 2100 109 20 108/68 95 Room Air 06/08 2059 101 108/68 06/08 1627 98.2 106 20 130/70 93 Room Air 06/08 0851 89 134/90 06/08 0851 89 134/90 06/08 0659 98.4 89 22 134/90 96 Room Air Intake & Output 06/09 0800 06/09 0000 06/08 1600 Intake Total 364 Output Total 1100 500 Balance -1100 -136 Intake, IV 4 Intake, Oral 360 Number 0 Bowel Movements Output, Urine 1100 500 Patient 273 lb Weight Weight Bed scale Measurement Method Physical Exam General Appearance: Alert, Oriented X3, Cooperative, No Acute Distress Skin: No Rashes, No Breakdown, No Significant Lesion Skin Temp/Moisture Exam: Warm/Dry HEENT: Atraumatic, PERRLA, EOMI, Mucous Membr. moist/pink Neck: Supple, No thryomegaly Cardiovascular: Regular Rate, Normal S1, Normal S2, No Murmurs, Gallops, Rubs Lungs: Clear to Auscultation, Normal Air Movement Abdomen: Normal Bowel Sounds, Soft, No Tenderness, No Hepatospenomegaly, No Masses Extremities: pronounced edema bilateral lower extremities, up to the ankle Current Medications: Current Medications Sig/Guy Start time Last Medication Dose Route Stop Time Status Admin Acetaminophen 650 MG Q6P PRN 06/06 1100 AC PO Furosemide 20 MG DAILY 06/06 1130 AC 06/08 IV 0851 Lisinopril 10 MG DAILY 06/09 0900 AC PO Lisinopril 5 MG DAILY 06/07 1153 DC 06/08 PO 0851 Metoprolol Tartrate 25 MG BID 06/07 1153 AC 06/08 PO 2058 Oxycodone/ 1 TAB Q6P PRN 06/06 1100 AC Acetaminophen PO Warfarin Sodium 5 MG COUMADIN 1700 ONE 06/08 1700 DC 06/08 PO 06/08 1701 1638 Last 24 Hrs of Lab/Josafat Results Last 24 Hrs of Labs/Mics: Laboratory Tests 06/08/18 0635: Anion Gap 7, Estimated GFR > 60, BUN/Creatinine Ratio 22.5, Triglycerides 146, Cholesterol 132, LDL Cholesterol, Calc 80, HDL Cholesterol 23 L, Cholesterol/ HDL Ratio 6 H, PT 21.2 H, INR 1.93 H, CBC w Diff NO MAN DIFF REQ, RBC 5.48, MCV 90.3, MCH 29.6, MCHC 32.8 L, RDW 15.3 H, MPV 10.6 H, Gran % 70.7, Lymphocytes % 18.5 L, Monocytes % 8.5, Eosinophils % 1.9, Basophils % 0.4, Absolute Granulocytes 7.5 H, Absolute Lymphocytes 2.0, Absolute Monocytes 0.9 H, Absolute Eosinophils 0.2, Absolute Basophils 0 Assessment/Plan Assessment: 58 YO M with PMH significant for atrial fibrillation on Coumadin presented to the hospital with a chief complaint of worsening shortness of breath and palpitations for 1 day. Problem list/plan: #Acute on chronic systolic heart failure: Patient presented with shortness of breath and his proBNP was elevated compared to the previous month. Echocardiogram showed an ejection fraction of 2025% with anteroseptal akinesia. -Continue Lasix 20 mg IV -Continue monitoring his input and output and daily weight -Follow-up cardiology recommendations. #History of newly diagnosed atrial fibrillation: Patient is noncompliant with medication. Patient was recently diagnosed with atrial fibrillation and he was started on diltiazem for rate control and Coumadin for anticoagulation to prevent stroke. On presentation he was found to have A. fib with rapid ventricular response. -Diltiazem has been discontinued due to new cardiomyopathy, patient was started metoprolol 25 mg twice daily - Increased lisinopril 10 mg daily. Patient is scheduled to undergo MENDOZA cardioversion later today, 06/09/2018 -Patient will require outpatient follow-up for evaluation of sleep apnea. -Continue Coumadin according to INR to keep it between 23 #Supratherapeutic INR: Patient was taking coumadin 5mg since May 30, without monitoring his INR. On presentation patient's INR was 4.87. INR Today is 1.6. -Bridge patient with subcutaneous lovenox 80mg DVT prophylaxis: ALPS and patient is already on coumadin Diet is currently NPO, switch back to regular diet following MENDOZA cardioversion Patient is full code. Problem List: 1. CHF (congestive heart failure) Pain Ratin Pain Location: none Pain Goal: Remain pain free Pain Plan: tylenol Tomorrow's Labs & Rationales: none
[2018-06-09 07:30] VITALS: BP 110/66
[2018-06-09] MEDS ORDERED: COUMADIN5 M2 PO (08:00)
[2018-06-09 08:33] LABS: PT 18.2 SEC (9.4-12.5)
--- NOTE | 2018-06-09 11:56 | Proc Note Cardiology ---
Cardiology Procedure Procedure Date: 06/09/18 Cardiology Procedure(s): MENDOZA Pre-Operative Diagnosis: atrial fibrillation, hfref/cardiomyopathy with severely depressed LV systolic function Post-Operative Diagnosis: atrial fibrillation, cardiomyopathy, left atrial appendage thrombus Estimated Blood Loss: none Anesthesia: moderate sedation (as per anesthesia service) Procedure Findings: The patient was brought to the invasive imaging suite in a fasting state. Informed consent was obtained and the patient was prepped in the usual fashion. A time out was performed. A bite block was inserted. The patient received anesthesia/moderate sedation with IV propofol by the anesthesiology service. The MENDOZA probe was passed without difficulty. Less than one minute after intubation with the MENDOZA probe the patient was noted to be significantly hypoxic to SpO2 65% . This did not improve with jaw thrust. The MENDOZA probe was removed. The patient was bagged and oxygentation improved with SpO2 97%. Additionally, the patient was hypotensive immediately after the MENDOZA probe was removed. Noninvasive BP was 65/43 mmHg. This improved after IV ephedrine 10mg IVP x 3. Bedside limited transthoracic echocardiogram showed that LV systolic function remained severely reduced but was grossly unchanged from his previous transthoracic study. The blood pressure improved to 90/65 mmHg, and subsequently was 102/73 mmHg. Following the procedure the patient was awake and alert, moving all four extremities. Findings: Very limited study. Procedure was cut short due to hypoxia and hypotension. 1. Well-formed thrombus was noted in the left atrial appendage on limited views. 2. The LV systolic function is severely reduced. No cardioversion was performed due to the presence of left atrial appendage thrombus. Recommendations: Continue with lovenox 1mg/kg sq q12h Continue with coumadin for goal INR 2-3 Discontinue lovenox when INR therapuetic Continue with b-latrice, ACEI The patient can be returned to the telemetry floor after one hour of observation The patient can eat after one hour The patient will need repeat MENDOZA in three months. He will likely need to be electively intubated prior to this repeat MENDOZA given his inability to tolerate MENDOZA today.
--- NOTE | 2018-06-09 12:13 | PN- Cardiology ---
See Addendum Subjective Subjective: The patient continues to deny chest pain, palpitations, dyspnea at rest. Denies PND/orthopnea, lower extremity swelling. He does become dyspneic with any amount of exertion. Continues to be concerned about whether or not he will be able to go back to work. Objective Vital Signs and I&Os Vital Signs Date Time Temp Pulse Resp B/P B/P Pulse O2 O2 Flow FiO2 Mean Ox Delivery Rate 06/09 0831 94 110/66 06/09 0831 94 110/66 06/09 0730 97.9 94 20 110/66 96 Room Air 06/08 2102 Room Air 06/08 2100 109 20 108/68 95 Room Air 06/08 2059 101 108/68 06/08 1627 98.2 106 20 130/70 93 Room Air Intake & Output 06/09 1600 06/09 0800 06/09 0000 06/08 1600 06/08 0800 06/08 0000 Intake Total 364 400 600 Output Total 700 1100 500 500 Balance -700 -1100 -136 400 100 Intake, IV 4 Intake, Oral 360 400 600 Number 0 Bowel Movements Output, Urine 700 1100 500 500 Patient 123.604 kg Weight Weight Bed scale Measurement Method Physical Exam: General: no apparent distress, mildly agitated HEENT: NCAT, NO JVD Heart: distant heart sounds, s1s2, irregular rhythm Lungs: CTA b/l Abd: soft, nt, obese Ext: trace pitting edema b/l LE to upper shins Current Medications: Current Medications Sig/Guy Start time Last Medication Dose Route Stop Time Status Admin Acetaminophen 650 MG Q6P PRN 06/06 1100 AC PO Enoxaparin Sodium 120 MG BID 06/09 945 AC 06/09 SC 1002 Enoxaparin Sodium 120 MG BID 06/09 915 DC SC Furosemide 20 MG DAILY 06/10 900 AC PO Furosemide 20 MG DAILY 06/06 1130 DC 06/09 IV 0829 Lidocaine 0 .STK-MED ONE 06/09 922 DC TOP Lisinopril 10 MG DAILY 06/09 900 AC 06/09 PO 0831 Metoprolol Tartrate 25 MG BID 06/07 1153 AC 06/09 PO 0831 Oxycodone/ 1 TAB Q6P PRN 06/06 1100 AC Acetaminophen PO Warfarin Sodium 5 MG COUMADIN 1700 ONE 06/08 1700 DC 06/08 PO 06/08 1701 1638 Results Last 48 Hrs of Labs/Mics: Laboratory Tests 06/09/18 0640: PT 18.2 H, INR 1.66 H 06/08/18 0635: Anion Gap 7, Estimated GFR > 60, BUN/Creatinine Ratio 22.5, Triglycerides 146, Cholesterol 132, LDL Cholesterol, Calc 80, HDL Cholesterol 23 L, Cholesterol/ HDL Ratio 6 H, PT 21.2 H, INR 1.93 H, CBC w Diff NO MAN DIFF REQ, RBC 5.48, MCV 90.3, MCH 29.6, MCHC 32.8 L, RDW 15.3 H, MPV 10.6 H, Gran % 70.7, Lymphocytes % 18.5 L, Monocytes % 8.5, Eosinophils % 1.9, Basophils % 0.4, Absolute Granulocytes 7.5 H, Absolute Lymphocytes 2.0, Absolute Monocytes 0.9 H, Absolute Eosinophils 0.2, Absolute Basophils 0 Recent Imaging Studies: TTE 06/06/2018 Left Ventricle Left ventricle not well visualized. Mild left ventricular dilatation. Normal left ventricular wall thickness. Severely reduced global left ventricular systolic function with anteroseptal akinesis. Left ventricular ejection fraction is estimated at 20-25 %. Telemetry personally reviewed, Antonette fib with RVR, transient bradycardia to the 40s bpm overnight, longest pause measuring around 3.5 seconds MENDOZA 06/09/2018 very limited study well formed thrombus visualized in the left atrial appendage severely reduced LV systolic function Assessment/Plan Assessment/Plan 1. Rapid atrial fibrillation with possible sick sinus syndrome (tachy/megan). His heart rate is improved. His bradycardia may be secondary to sleep apnea given his obesity and timing of bradycardia/pauses appear to be overnight when the patient is sleeping 2. Left atrial appendage thrombus, INR subtherapeutic today 3. 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 Obesity 5. History of noncompliance with medications 6. Ex-smoker The patient is status post MENDOZA today. He did not tolerate the procedure well, and became hypotensive and hypoxic. The probe was removed after less than 1 minute and the patient was given supplemental oxygen and ephedrine with improvement in vital signs. Given the presence of thrombus on transesophageal echocardiogram, no cardioversion was attempted. The patient remains in atrial fibrillation. He is typically in RVR with ventricular rates around 110-1 15 bpm , however this increases with any exertion. Overnight, while sleeping, the patient is transiently bradycardic with pauses that have not exceeded 5 seconds. However given bradycardia, the patient's tachycardia is difficult to manage. At this time we will increase the morning dose of Lopressor to 50 mg p.o., and continue with evening dose of 25 mg p.o. Continue telemetry. We will cautiously consider digoxin pending his response to increased lopressor. Patient will need repeat transesophageal echocardiogram in 3 months to reevaluate the presence of thrombus. However the patient will need evaluation for elective intubation prior to any repeat transesophageal echocardiogram as the patient became hypotensive and hypoxic after receiving propofol and intubated with the MENDOZA probe today. INR subtherapeutic today. The patient will be bridged with Lovenox 1 mg/kg ( 120kg) sq q12h until the INR is therapeutic with a goal of 2-3. Continue with lisinopril. Continue with metoprolol as above. Furosemide can be switched to 20 mg p.o. daily. Lipid profile reviewed. LDL 80. As per ACC ASCVD risk calculator, the patient has approximately 7.3% 10 year risk for an adverse cardiovascular event. Moderate intensity statin therapy is reasonable in this patient. However given his current issues with medication compliance, I will discuss statin therapy with him before starting any further new medications. He will need outpatient sleep study and ischemic workup likely with a nuclear stress test. Continue telemetry? Yes
[2018-06-09 14:56] VITALS: BP 102/82; BP 90/58
--- NOTE | 2018-06-09 17:23 | ECHOCARDIOGRAM REPORT ---
FRAN MADRIGAL Age: 58 : Gender: M 1 Exam Date: 06/09/2018 11:15 Exam Location: [facility] Ht (in): 74 Wt (lb): 297 BSA: 2.70 BP: 134 / 90 Ordering Physician: Stephan Munoz MD Referring Physician: Stephan Munoz MD Technologist: Jordi Contreras RDCS Room Number: Indications: Persistent atrial fibrillation Rhythm: Atrial fibrillation Technical Quality: Medications Ease of Transducer Insertion Complications Technical Difficulty FINDINGS Left Ventricle Left ventricle not well visualized. Severely reduced global left ventricular systolic function. Right Ventricle Right Atrium Left Atrium LA Appendage Definite thrombus in the left atrial appendage. IA Septum Mitral Valve Aortic Valve Tricuspid Valve Pulmonic Valve Pericardium Great Vessels CONCLUSIONS Left ventricle not well visualized. Severely reduced global left ventricular systolic function. Definite thrombus in the left atrial appendage. Limited study. The patient became hypoxic and hypotensive after intubation with the MENDOZA probe. The study was discontinued. The patient's oxygenation improved with bag mask ventilation and blood pressure improved after ephedrine IVP. No cardioversion was attempted due to the presence of MALENA thrombus. Dr. Stephan Munoz (Electronically Signed) Final Date: 09 June 2018 17:20 MEASUREMENTS (Male / Female) Normal Values
[2018-06-09 22:51] VITALS: BP 104/60
[2018-06-10 06:50] VITALS: BP 110/70
--- NOTE | 2018-06-10 07:01 | PN- Housestaff ---
Mike Almanzar 06/10/18 0701: Subjective Follow-up For: Atrial fibrillation with RVR Supratherapeutic INR Tele-Events Since Last Visit: Two significant pauses overnight (4.2 seconds, 3.6 seconds) Subjective: Patient seen and examined at bedside. Patient was unable to undergo cardioversion yesterday due to appendage thrombus found on MENDOZA, as well as poor tolerance of procedure. Continues to experience the strange feeling in his chest , and continues to be concerned about his ability to return to work as soon as possible. Denies any pain. Denies fever/chills/night sweats/chest pain/ abdominal pain/urinary symptoms. Review of Systems Constitutional: Reports: no symptoms, see HPI. Objective Last 24 Hrs of Vital Signs/I&O Vital Signs Date Time Temp Pulse Resp B/P B/P Pulse O2 O2 Flow FiO2 Mean Ox Delivery Rate 06/10 0650 97.5 88 20 110/70 94 Room Air 06/10 0608 110/70 06/10 0056 103 104/65 06/10 0000 Room Air 06/09 2251 97.5 100 20 104/60 97 Room Air 06/09 2130 Room Air 06/09 2053 108 104/60 06/09 1804 104 110/68 06/09 1456 98.0 104 20 102/82 94 Room Air 06/09 0831 94 110/66 06/09 0831 94 110/66 Intake & Output 06/10 1600 12 0800 06/10 0000 Intake Total 110 240 Output Total 650 650 Balance -540 -410 Intake, IV 10 Intake, Oral 100 240 Output, Urine 650 650 Patient 314 lb Weight Weight Bed scale Measurement Method Physical Exam General Appearance: Alert, Oriented X3, Cooperative, No Acute Distress Skin: No Rashes, No Breakdown, No Significant Lesion Skin Temp/Moisture Exam: Warm/Dry HEENT: Atraumatic, PERRLA, EOMI, Mucous Membr. moist/pink Neck: Supple, No JVD, No thryomegaly Cardiovascular: Normal S1, Normal S2, No Murmurs, Gallops, Rubs, irregularly irregular rhythym Lungs: Clear to Auscultation, Normal Air Movement Abdomen: Soft, No Tenderness Neurological: Normal Speech, Strength at 5/5 X4 Ext, Normal Tone, Sensation Intact Extremities: No Clubbing, No Cyanosis, edema on lower extremities, up to ankles Current Medications: Current Medications Sig/Guy Start time Last Medication Dose Route Stop Time Status Admin Acetaminophen 650 MG Q6P PRN 06/06 1100 AC PO Digoxin 0.125 MG Q6 06/09 2359 DC 06/10 IV 06/10 0601 0608 Digoxin 0.25 MG ONCE ONE 06/09 1730 DC 06/09 IV 06/09 1731 1804 Digoxin Immune LIS 0.25 MARLEEN ONCE ONE 06/09 1715 CAN IV 06/09 1716 Enoxaparin Sodium 120 MG BID 06/09 0945 AC 06/09 SC 2053 Enoxaparin Sodium 120 MG BID 06/09 0915 DC SC Furosemide 20 MG DAILY 06/10 0900 AC PO Furosemide 20 MG DAILY 06/06 1130 DC 06/09 IV 0829 Lidocaine 0 .STK-MED ONE 06/09 09 DC TOP Lisinopril 10 MG DAILY 06/09 0900 AC 06/09 PO 0831 Metoprolol Tartrate 50 MG DAILY 06/10 0900 AC PO Metoprolol Tartrate 25 MG 2100 06/09 2100 AC 06/09 PO 2053 Metoprolol Tartrate 50 MG DAILY 06/09 1600 DC PO Metoprolol Tartrate 25 MG 1600 06/09 1600 DC PO 06/09 1601 Metoprolol Tartrate 25 MG BID 06/07 1153 DC 06/09 PO 0831 Oxycodone/ 1 TAB Q6P PRN 06/06 1100 AC Acetaminophen PO Warfarin Sodium 7.5 MG COUMADIN 1700 06/09 1700 DC 06/09 PO 06/09 2359 1657 Last 24 Hrs of Lab/Josafat Results Last 24 Hrs of Labs/Mics: Laboratory Tests 06/10/18 0642: PT Pending, INR Pending Orders ECHO Findings: MENDOZA - left atrial appendage thrombus Assessment/Plan Assessment: 58 YO M with PMH significant for atrial fibrillation on Coumadin presented to the hospital with a chief complaint of worsening shortness of breath and palpitations for 1 day. Problem list/plan: Acute on chronic systolic heart failure -Patient presented with shortness of breath and his proBNP was elevated compared to the previous month. Echocardiogram showed an ejection fraction of 2025% with anteroseptal akinesia. -Continue Lasix 20 mg IV -Continue monitoring his input and output and daily weight -Follow-up cardiology recommendations, including discussion of pacemaker Newly diagnosed atrial fibrillation -Patient is noncompliant with medication. Patient was recently diagnosed with atrial fibrillation and he was started on diltiazem for rate control and Coumadin for anticoagulation to prevent stroke. On presentation he was found to have A. fib with rapid ventricular response. -Diltiazem has been discontinued due to new cardiomyopathy, patient was started metoprolol 25 mg twice daily - Increased lisinopril 10 mg daily. Patient was unable to undergo cardioversion 06/09/18 due to left atrial appendage thrombus -Patient will require outpatient follow-up for evaluation of sleep apnea. -Continue Coumadin according to INR to keep it between 23 -Bridge INR with lovenox until therapeutic Morbid obesity -Patient will need nutritional counseling following this inpatient visit. DVT prophylaxis: ALPS and patient is already on coumadin Heart healthy diet Patient is full code Problem List: 1. Atrial fibrillation with RVR 2. CHF (congestive heart failure) 3. Thrombus of left atrial appendage 4. Morbid obesity Pain Ratin Pain Location: none Pain Goal: Remain pain free Pain Plan: Tylenol Tomorrow's Labs & Rationales: INR Leonora Teague MD 06/10/18 1004: Attending MD Review Statement Attending Statement Attending MD Statement: examined this patient, discuss w/resident/PA/LAMINATION ASSEMBLER, agreed w/resident/PA/LAMINATION ASSEMBLER, reviewed EMR data (avail), discussed with nursing, discussed with case mgmt, reviewed images Attending Assessment/Plan: Patient could not have his cardioversion yesterday as he has a left atrial thrombus. We are anticoagulating with Lovenox bridging with p.o. Coumadin. He is also having tachybradycardia syndrome with significant pauses and tachycardia. We are going to start him on p.o. dig with the beta-latrice and given his low EF likely tachycardia induced cardiomyopathy we will also maximize medical treatment with an LESLIE inhibitor.
[2018-06-10] MEDS ORDERED: FUROSEMIDE20 M1 PO (07:44)
[2018-06-10] MEDS ORDERED: METOPROLOL TART25 M1 PO (07:44)
[2018-06-10] MEDS ORDERED: METOPROLOL TART50 M1 PO (07:44)
[2018-06-10] MEDS ORDERED: LISINOPRIL10 M1 PO (07:47)
[2018-06-10 08:17] LABS: PT 20.9 SEC (9.4-12.5)
--- NOTE | 2018-06-10 10:02 | PN- Cardiology ---
Subjective Subjective: The patient denies chest pain, palpitations, dyspnea at rest. He has not ambulated yet today. Objective Vital Signs and I&Os Vital Signs Date Time Temp Pulse Resp B/P B/P Pulse O2 O2 Flow FiO2 Mean Ox Delivery Rate 06/10 0943 110/70 06/10 0942 97.5 88 20 110/70 06/10 0650 97.5 88 20 110/70 94 Room Air 06/10 0608 110/70 06/10 0056 103 104/65 06/10 0000 Room Air 06/09 2251 97.5 100 20 104/60 97 Room Air 06/09 2130 Room Air 06/09 2053 108 104/60 06/09 1804 104 110/68 06/09 1456 98.0 104 20 102/82 94 Room Air Intake & Output 06/10 1600 06/10 0800 06/10 0000 06/09 1600 06/09 0800 06/09 0000 Intake Total 110 240 480 Output Total 650 650 418 619 8894 Balance -540 -410 180 -700 -1100 Intake, IV 10 Intake, Oral 100 240 480 Output, Urine 650 650 660 263 3481 Patient 142.598 kg 123.604 kg Weight Weight Bed scale Bed scale Measurement Method Physical Exam: General: no apparent distress, mildly agitated HEENT: NCAT, NO JVD Heart: distant heart sounds, s1s2, irregular rhythm Lungs: CTA b/l Abd: soft, nt, obese Ext: trace pitting edema b/l LE to upper shins Current Medications: Current Medications Sig/Guy Start time Last Medication Dose Route Stop Time Status Admin Acetaminophen 650 MG Q6P PRN 06/06 1100 AC PO Digoxin 0.125 MG Q6 06/09 2359 DC 06/10 IV 06/10 0601 0608 Digoxin 0.25 MG ONCE ONE 06/09 1730 DC 06/09 IV 06/09 1731 1804 Digoxin Immune LIS 0.25 MARLEEN ONCE ONE 06/09 1715 CAN IV 06/09 1716 Enoxaparin Sodium 120 MG BID 06/09 945 AC 06/10 SC 43 Furosemide 20 MG DAILY 06/10 900 AC 06/10 PO 942 Lisinopril 10 MG DAILY 06/09 900 AC 06/10 PO 942 Metoprolol Tartrate 50 MG DAILY 06/10 900 AC 06/10 PO 941 Metoprolol Tartrate 25 MG 2100 06/09 2100 AC 06/09 PO 2052 Metoprolol Tartrate 50 MG DAILY 06/09 1600 DC PO Metoprolol Tartrate 25 MG 1600 06/09 1600 DC PO 06/09 1601 Metoprolol Tartrate 25 MG BID 06/07 1153 DC 06/09 PO 0831 Oxycodone/ 1 TAB Q6P PRN 06/06 1100 AC Acetaminophen PO Warfarin Sodium 7.5 MG COUMADIN 1700 06/09 1700 DC 06/09 PO 06/09 2359 1657 Results Last 48 Hrs of Labs/Mics: Laboratory Tests 06/10/18 0642: PT 20.9 H, INR 1.90 H 06/09/18 0640: PT 18.2 H, INR 1.66 H Recent Imaging Studies: TTE 06/06/2018 Left Ventricle Left ventricle not well visualized. Mild left ventricular dilatation. Normal left ventricular wall thickness. Severely reduced global left ventricular systolic function with anteroseptal akinesis. Left ventricular ejection fraction is estimated at 20-25 %. MENDOZA 06/09/2018 Left ventricle not well visualized. Severely reduced global left ventricular systolic function. Definite thrombus in the left atrial appendage. Limited study. The patient became hypoxic and hypotensive after intubation with the MENDOZA probe. The study was discontinued. The patient's oxygenation improved with bag mask ventilation and blood pressure improved after ephedrine IVP. No cardioversion was attempted due to the presence of MALENA thrombus. Telemetry personally reviewed: Atrial fibrillation, rate currently well controlled in the 80s beats per minute, overnight periods of bradycardia to the high 30s-40s beats per minute with pauses, longest of which measures between 3 and 4 seconds, no pauses longer than 5 seconds Assessment/Plan Assessment/Plan 1. Rapid atrial fibrillation with possible sick sinus syndrome (tachy/megan). His heart rate is improved. His bradycardia may be secondary to sleep apnea given his obesity and timing of bradycardia/pauses appear to be overnight when the patient is sleeping 2. Left atrial appendage thrombus, INR subtherapeutic today 3. Likely obstructive sleep apnea 4. 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 Obesity 6. History of noncompliance with medications 7. Ex-smoker Patient remains in atrial fibrillation but has responded well to IV digoxin loading. Would continue the patient on Digoxin 500 MCG PO daily. Continue Lopressor 50 mg p.o. in the morning and 25 mg p.o. in the evening. Continue with lisinopril, furosemide. Would start atorvastatin 20 mg p.o. nightly. Continue with coumadin. Continue with full dose Lovenox until INR is therapeutic , goal 2-3. Patient will need sleep study and nuclear stress test as an outpatient. Continue telemetry? Yes
[2018-06-10] MEDS ORDERED: ATORVASTATIN CA20 M1 PO (10:30)
[2018-06-10 14:34] VITALS: BP 114/82
[2018-06-10 22:00] VITALS: BP 110/60
[2018-06-11 06:44] VITALS: BP 110/84
--- NOTE | 2018-06-11 06:59 | PN- Housestaff ---
Mike Almanzar 06/11/18 0658: Subjective Follow-up For: Atrial fibrillation with RVR Supratherapeutic to subtherapeutic INR Complaints: shortness of breath Tele-Events Since Last Visit: 3.9s pause @ 01:07 this morning Subjective: Patient seen and eamined at the bedside. The patient seemed in poor spirits today, did not want to discuss his care. Continues to be concerned about his housing situation when he leaves. Continues to experience strange sensation in chest and shortness of breath; however denies pain, fever, chills, night sweats, abdominal pain or urinary symptoms. Review of Systems Constitutional: Reports: see HPI. Denies: chills, diaphoresis, weakness. Cardiovascular: Denies: chest pain, syncope. Respiratory: Reports: short of breath. Gastrointestinal: Reports: no symptoms. Musculoskeletal: Reports: no symptoms. Objective Last 24 Hrs of Vital Signs/I&O Vital Signs Date Time Temp Pulse Resp B/P B/P Pulse O2 O2 Flow FiO2 Mean Ox Delivery Rate 06/11 0806 83 110/84 06/11 0644 97.4 83 18 110/84 95 Room Air 06/11 0000 94 Room Air 06/10 2200 98.1 90 20 110/60 96 Room Air 06/10 2042 87 114/82 06/10 1607 87 114/82 06/10 1434 97.8 87 20 114/82 97 Room Air Intake & Output 06/11 1600 06/11 0800 06/11 0000 Intake Total 360 Output Total 500 800 Balance -140 -800 Intake, Oral 360 Output, Urine 500 800 Patient 313 lb Weight Weight Bed scale Measurement Method Physical Exam General Appearance: Alert, Oriented X3, No Acute Distress, mildly uncooperative Skin: No Rashes, No Breakdown, hematomas on abdomen Skin Temp/Moisture Exam: Warm/Dry Neck: Supple, No JVD, No thryomegaly Cardiovascular: Normal S1, Normal S2, No Murmurs, Gallops, Rubs, irregular rate Lungs: Clear to Auscultation, Normal Air Movement Abdomen: Soft, No Tenderness, No Hepatospenomegaly Neurological: Normal Gait, Normal Speech, Strength at 5/5 X4 Ext, Normal Tone, Sensation Intact Extremities: No Clubbing, No Cyanosis, pronounced edema bilateral LE Current Medications: Current Medications Sig/Guy Start time Last Medication Dose Route Stop Time Status Admin Acetaminophen 650 MG Q6P PRN 06/06 1100 AC PO Atorvastatin Calcium 20 MG 1700 06/10 1700 AC 06/10 PO 1606 Digoxin 0.5 MG 1700 06/11 1700 DC PO Digoxin 0.125 MG 1700 06/11 1700 AC PO Digoxin 0.125 MG DAILY 06/11 1015 CAN PO Digoxin 0.25 MG 1700 06/10 1700 DC 06/10 PO 1607 Enoxaparin Sodium 120 MG BID 06/09 0945 AC 06/11 SC 0811 Furosemide 40 MG DAILY 06/12 09 AC PO Furosemide 20 MG ONCE ONE 06/11 1015 DC 06/11 PO 06/11 1016 1142 Furosemide 20 MG DAILY 06/10 09 DC 06/11 PO 0806 Lisinopril 10 MG DAILY 06/09 09 AC 06/11 PO 0806 Metoprolol Tartrate 50 MG BID 06/11 1010 AC PO Metoprolol Tartrate 50 MG DAILY 06/10 0900 DC 06/11 PO 0806 Metoprolol Tartrate 25 MG 2100 06/09 2100 AC 06/10 PO 2042 Oxycodone/ 1 TAB Q6P PRN 06/06 1100 AC Acetaminophen PO Warfarin Sodium 7.5 MG COUMADIN 17006/11 1700 AC PO 06/11 2359 Warfarin Sodium 7.5 MG COUMADIN 1700 06/10 1700 DC 06/10 PO 1606 Last 24 Hrs of Lab/Josafat Results Last 24 Hrs of Labs/Mics: Laboratory Tests 06/11/18 0644: Total Bilirubin 1.1, Direct Bilirubin 0.2, AST 24, ALT 31, Alkaline Phosphatase 85, Total Protein 6.0 L, Albumin 3.2 L, PT 22.5 H, INR 2.05 H Assessment/Plan Assessment: 58 YO M with PMH significant for atrial fibrillation on Coumadin presented to the hospital with a chief complaint of worsening shortness of breath and palpitations for 1 day. Problem list/plan: Acute on chronic systolic heart failure -Patient presented with shortness of breath and his proBNP was elevated compared to the previous month. Echocardiogram showed an ejection fraction of 2025% with anteroseptal akinesia. -Continue monitoring his input and output and daily weight -Appreciate recommendations from cardiology. -Increase furosemide to 40 mg daily -Decrease digoxin to 0.125mg nightly -Check digoxin level prior to discharge -Increase metoprolol to 50 mg bid Newly diagnosed atrial fibrillation -Patient is noncompliant with medication. Patient was recently diagnosed with atrial fibrillation and he was started on diltiazem for rate control and Coumadin for anticoagulation to prevent stroke. On presentation he was found to have A. fib with rapid ventricular response. -Diltiazem has been discontinued due to new cardiomyopathy, patient was started metoprolol 25 mg twice daily - Increased lisinopril 10 mg daily. Patient was unable to undergo cardioversion 06/09/18 due to left atrial appendage thrombus -Patient will require outpatient follow-up for evaluation of sleep apnea. -Continue Coumadin according to INR to keep it between 23 -Bridge INR with lovenox until therapeutic for 2 days; was therapeutic at 2.05 today Morbid obesity -Patient will need nutritional counseling following this inpatient visit. -Liver function panel was normal today DVT prophylaxis: ALPS and patient is already on coumadin Heart healthy diet Patient is full code Problem List: 1. Atrial fibrillation with RVR 2. CHF (congestive heart failure) 3. Thrombus of left atrial appendage 4. Morbid obesity Pain Ratin Pain Location: none Pain Goal: Remain pain free Pain Plan: Tylenol Tomorrow's Labs & Rationales: INR Discharge Plan Discharge Disposition: home Stable for Discharge? No Anticipated Discharge (Day): tomorrow Leonora Teague MD 06/11/18 0944: Attending MD Review Statement Attending Statement Attending MD Statement: examined this patient, discuss w/resident/PA/BOOM MASTER, agreed w/resident/PA/BOOM MASTER, reviewed EMR data (avail), discussed with nursing, discussed with case mgmt Attending Assessment/Plan: Patient is difficult to talk to. He just wants to be left alone and not bothered. He did not participate in a meaningful discussion with the fire fighting equipment specialist to get insurance. He says he will buy all of his medicines with a credit card and he has a scar parked over here. We are treating him for systolic heart failure with probable tachycardia induced cardiomyopathy with atrial fibrillation and tachybradycardia syndrome. His INR is 2.05 today we will continue bridging with Lovenox for another 24 hours and anticipate discharge in a.m.
[2018-06-11 07:36] LABS: PT 22.5 SEC (9.4-12.5)
--- NOTE | 2018-06-11 10:00 | PN- Cardiology ---
Subjective Subjective: Patient appears comfortable resting. Agitated to answer questions. Telemetry reveals atrial fibrillation with controlled ventricular response of around 80. Objective Vital Signs and I&Os Vital Signs Date Time Temp Pulse Resp B/P B/P Pulse O2 O2 Flow FiO2 Mean Ox Delivery Rate 06/11 0806 83 110/84 06/11 0644 97.4 83 18 110/84 95 Room Air 06/11 0000 94 Room Air 06/10 2200 98.1 90 20 110/60 96 Room Air 06/10 2042 87 114/82 06/10 1607 87 114/82 06/10 1434 97.8 87 20 114/82 97 Room Air Intake & Output 06/11 1600 06/11 0800 06/11 0000 06/10 1600 06/10 0800 06/10 0000 Intake Total 360 240 110 240 Output Total 500 800 525 650 650 Balance -140 -800 -285 -540 -410 Intake, IV 10 Intake, Oral 360 240 100 240 Output, Urine 500 800 525 650 650 Patient 313 lb 314 lb Weight Weight Bed scale Bed scale Measurement Method Physical Exam: General exam he appeared comfortable. Head normocephalic atraumatic Eyes sclera anicteric conjunctiva showed no pallor extraocular muscles were normal neck no jugular venous tension no thyroid masses no palpable nodes Chest lungs were clear bilaterally Heart irregular rhythm with a ventricular rate around 80 Abdomen soft no organomegaly bowel sounds normal Extremities 2+ edema. Neurological no gross motor or sensory deficits. Current Medications: Current Medications Sig/Guy Start time Last Medication Dose Route Stop Time Status Admin Acetaminophen 650 MG Q6P PRN 06/06 1100 AC PO Atorvastatin Calcium 20 MG 1700 06/10 1700 AC 06/10 PO 1606 Digoxin 0.5 MG 1700 06/11 1700 AC PO Digoxin 0.25 MG 1700 06/10 1700 DC 06/10 PO 1607 Enoxaparin Sodium 120 MG BID 06/09 0945 AC 06/11 SC 0811 Furosemide 20 MG DAILY 06/10 900 AC 06/11 PO 08 Lisinopril 10 MG DAILY 06/09 900 AC 06/11 PO 0806 Metoprolol Tartrate 50 MG DAILY 06/10 900 AC 06/11 PO 0806 Metoprolol Tartrate 25 MG 2100 06/09 2100 AC 06/10 PO 204 Oxycodone/ 1 TAB Q6P PRN 06/06 1100 AC Acetaminophen PO Warfarin Sodium 7.5 MG COUMADIN 1700 06/11 1700 AC PO 06/11 2359 Warfarin Sodium 7.5 MG COUMADIN 1700 06/10 1700 DC 06/10 PO 1606 Results Last 48 Hrs of Labs/Mics: Laboratory Tests 06/11/18 0644: Total Bilirubin 1.1, Direct Bilirubin 0.2, AST 24, ALT 31, Alkaline Phosphatase 85, Total Protein 6.0 L, Albumin 3.2 L, PT 22.5 H, INR 2.05 H 06/10/18 0642: PT 20.9 H, INR 1.90 H Assessment/Plan Assessment/Plan In summary this 58-year-old gentleman has a following problems 1. Rapid atrial fibrillation with possible sick sinus syndrome (tachy/megan). His heart rate is improved. His bradycardia may be secondary to sleep apnea given his obesity and timing of bradycardia/pauses appear to be overnight when the patient is sleeping 2. Left atrial appendage thrombus, INR subtherapeutic today 3. Likely obstructive sleep apnea 4. 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 Obesity 6. History of noncompliance with medications 7. Ex-smoker His atrial fibrillation appears to be under fairly good control. He has slow rates during sleep and pauses, which could be aggravated by digoxin with its vagotonic effect. I would decrease digoxin to 0.125 mg a day. Increase metoprolol tartrate to 50 mg twice a day, or on discharge metoprolol succinate 100 mg once a day for better compliance. Since he clinically appears to be in congestive heart failure but increase furosemide to 40 mg a day. Please obtain digoxin level before discharge. Future care would be challenging as he has noncompliant and resistant to medications. Continue telemetry? Yes
[2018-06-11] MEDS ORDERED: TOPROL XL100 M1 PO (10:11)
[2018-06-11] MEDS ORDERED: FUROSEMIDE20 M1 PO (10:14)
[2018-06-11 15:24] VITALS: BP 138/88
--- NOTE | 2018-06-11 21:44 | Event Note ---
See Addendum Event Note Event Note: Situation: I was notified by the nurse that the patient had 2 sinus pauses earlier tonight while he was sleeping. Background: The patient is a 58-year-old male with atrial fibrillation which was diagnosed 1 month ago, he was on warfarin and diltiazem, and he presented into emergency department with chief complaint of worsening shortness of breath and palpitation. Assessment: The patient was asymptomatic, heart rate in high 80s and low 90s, blood pressure was 180/70, he was sleeping and snoring. I checked the strips, at 20: 18 he had one episode of sinus pause of 4.6 seconds, then 1 heartbeat, then followed by a 3.4 second pause. Then again at 20: 31 the patient had one more episode of sinus pause of 4.8 seconds. We arose the patient, he was asymptomatic and did not notice any symptoms while sleeping like nightmares or unusual thing. Since the patient has atrial fibrillation long sinus pauses are expected. But if they are longer than 6 seconds or if the patient is symptomatic then we will need to do some intervention. Electrolytes were normal. Recommendations: Patient will be under cardiac monitoring. I talked to Dr. Munoz about the patient, he recommended to decrease tonight's dose of metoprolol to 25 mg. We will watch the patient closely for any symptoms related to sinus pauses. Since the patient is on both metoprolol and digoxin, this combination might increase the risk of long sinus pauses.
[2018-06-11 22:40] VITALS: BP 122/70
--- NOTE | 2018-06-12 07:11 | PN- Housestaff ---
Mike Almanzar 06/12/18 0710: Subjective Follow-up For: Atrial fibrillation with RVR Complaints: remaining chest "strange feeling", shortness of breath Tele-Events Since Last Visit: Multiple pauses, ranging from 4.6 sec to 7.2 sec; all asymptomatic and during sleep Subjective: Patient seen and examined at the bedside. Patient seemed reasonably good spirits, was just eating breakfast. Continues to experience strange sensation in chest and shortness of breath; however denies pain, fever, chills, night sweats, abdominal pain or urinary symptoms. Plan is for discharge today. Review of Systems Constitutional: Reports: see HPI. Denies: chills, diaphoresis, fever. EENTM: Reports: no symptoms. Cardiovascular: Reports: palpitations. Denies: chest pain, syncope. Respiratory: Reports: short of breath. Gastrointestinal: Reports: no symptoms. Musculoskeletal: Reports: no symptoms. Objective Last 24 Hrs of Vital Signs/I&O Vital Signs Date Time Temp Pulse Resp B/P B/P Pulse O2 O2 Flow FiO2 Mean Ox Delivery Rate 06/12 0819 100 120/70 06/12 0819 100 120/70 06/12 0717 97.7 100 20 120/70 98 Room Air 06/12 0000 Room Air 06/11 2240 97.3 94 22 122/70 98 Room Air 06/11 2152 91 122/70 06/11 1622 88 110/70 06/11 1524 97.6 81 18 138/88 94 Room Air Intake & Output 06/12 1600 06/12 0800 06/12 0000 Intake Total 400 Output Total 1050 1150 Balance -1050 -750 Intake, IV 0 Intake, Oral 400 Output, Urine 1050 1150 Patient 307 lb Weight Weight Bed scale Measurement Method Physical Exam General Appearance: Alert, Oriented X3, Cooperative, No Acute Distress Skin: No Rashes, No Breakdown, No Significant Lesion Skin Temp/Moisture Exam: Warm/Dry HEENT: Atraumatic, PERRLA, EOMI, Mucous Membr. moist/pink Neck: Supple, No JVD, No thryomegaly Cardiovascular: Normal S1, Normal S2, No Murmurs, Gallops, irregular rate Lungs: Clear to Auscultation, Normal Air Movement Abdomen: No Tenderness Neurological: Normal Gait, Normal Speech, Strength at 5/5 X4 Ext, Normal Tone, Sensation Intact Extremities: No Clubbing, No Cyanosis, increased edema bilateral lower extremity Current Medications: Current Medications Sig/Guy Start time Last Medication Dose Route Stop Time Status Admin Acetaminophen 650 MG Q6P PRN 06/06 1100 AC PO Atorvastatin Calcium 20 MG 1700 06/10 1700 AC 06/11 PO 1622 Digoxin 0.5 MG 1700 06/11 1700 DC PO Digoxin 0.125 MG 1700 06/11 1700 AC 06/11 PO 1622 Digoxin 0.125 MG DAILY 06/11 1015 CAN PO Enoxaparin Sodium 120 MG BID 06/09 0945 DC 06/12 SC 0821 Furosemide 40 MG DAILY 06/12 0900 AC 06/12 PO 0818 Furosemide 20 MG ONCE ONE 06/11 1015 DC 06/11 PO 06/11 1016 1142 Lisinopril 10 MG DAILY 06/09 0900 AC 06/12 PO 0819 Metoprolol Tartrate 25 MG QPM 06/12 2100 DC PO Metoprolol Tartrate 50 MG QAM 06/12 0900 AC 06/12 PO 0819 Metoprolol Tartrate 25 MG QPM 06/11 2200 CAN PO Metoprolol Tartrate 25 MG QPM 06/11 2200 AC 06/11 PO 2152 Metoprolol Tartrate 50 MG BID 06/11 1010 DC PO Metoprolol Tartrate 50 MG DAILY 06/10 0900 DC 06/11 PO 0806 Metoprolol Tartrate 25 MG 2100 06/09 2100 DC 06/10 PO 2042 Oxycodone/ 1 TAB Q6P PRN 06/06 1100 AC Acetaminophen PO Warfarin Sodium 7.5 MG COUMADIN 1700 06/11 1700 DC 06/11 PO 06/11 2359 1622 Last 24 Hrs of Lab/Josafat Results Last 24 Hrs of Labs/Mics: Laboratory Tests 06/12/18 0632: Sodium Pending, Potassium Pending, Chloride Pending, Carbon Dioxide Pending, Anion Gap Pending, BUN Pending, Creatinine Pending, BUN/Creatinine Ratio Pending , PT 29.0 H, INR 2.63 H, Digoxin 0.8 Assessment/Plan Assessment: 58 YO M with PMH significant for atrial fibrillation on Coumadin presented to the hospital with a chief complaint of worsening shortness of breath and palpitations for 1 day. Problem list/plan: Acute on chronic systolic heart failure -Patient presented with shortness of breath and his proBNP was elevated compared to the previous month. Echocardiogram showed an ejection fraction of 2025% with anteroseptal akinesia. -Continue monitoring his input and output and daily weight -Appreciate recommendations from cardiology. -Increase furosemide to 40 mg daily -Decrease digoxin to 0.125mg nightly -Check digoxin level prior to discharge -Change metoprolol to 50mg qAM and 25mg qHS Newly diagnosed atrial fibrillation -Patient is noncompliant with medication. Patient was recently diagnosed with atrial fibrillation and he was started on diltiazem for rate control and Coumadin for anticoagulation to prevent stroke. On presentation he was found to have A. fib with rapid ventricular response. -Diltiazem has been discontinued due to new cardiomyopathy, patient was started metoprolol 25 mg twice daily - Increased lisinopril 10 mg daily. Patient was unable to undergo cardioversion 06/09/18 due to left atrial appendage thrombus -Patient will require outpatient follow-up for evaluation of sleep apnea. -Continue Coumadin according to INR to keep it between 23 -Bridge INR with lovenox until therapeutic for 2 days; was therapeutic at 2.69 today, so DC'ed lovenox Morbid obesity -Patient will need nutritional counseling following this inpatient visit. -Liver function panel was normal today DVT prophylaxis: ALPS and patient is already on coumadin Heart healthy diet Patient is full code Problem List: 1. Atrial fibrillation with RVR 2. Thrombus of left atrial appendage 3. Morbid obesity 4. CHF (congestive heart failure) Pain Ratin Pain Location: none Pain Goal: Remain pain free Pain Plan: Tylenol Tomorrow's Labs & Rationales: none Discharge Plan Discharge Disposition: home Stable for Discharge? Yes Anticipated Discharge (Day): today Leonora Teague MD 06/12/18 0951: Attending MD Review Statement Attending Statement Attending MD Statement: examined this patient, discuss w/resident/PA/DELIVERY DRIVER ASSISTANT, agreed w/resident/PA/DELIVERY DRIVER ASSISTANT, reviewed EMR data (avail), discussed with nursing, discussed with case mgmt, reviewed images Attending Assessment/Plan: Patient overall is doing okay. He is asymptomatic and continues to have these long pauses up to 6 seconds when he is asleep. We spoke to Dr. Persaud. He has atrial fibrillation and we have him on dig and metoprolol and we have decreased the dose of metoprolol to 50 in the morning and 25 at bedtime. We believe the pauses are secondary to undiagnosed obstructive sleep apnea. Patient is uninsured and fairly noncompliant with his follow-up. I spoke to him at length and explained the dangers of noncompliance given his tachycardia induced cardiomyopathy and thrombus in the left atrial appendage. He understands that he needs to take his medicines particularly his Coumadin and he needs close outpatient follow-up with Dr. Munoz, the manager digital ad operations and we have hooked him up with the PCP Dr. Wright at [address] [place] [address]. He is going to get his INR checked on Friday to follow-up.
[2018-06-12 07:17] VITALS: BP 120/70
[2018-06-12 08:19] VITALS: BP 120/70
[2018-06-12] MEDS ORDERED: METOPROLOL TART50 M1 PO ×2 (09:41→10:57)
[2018-06-12] MEDS ORDERED: METOPROLOL TART25 M1 PO ×2 (09:41→10:57)
[2018-06-12] MEDS ORDERED: LANOXIN125 MCG PO ×2 (09:41→10:57)
[2018-06-12] MEDS ORDERED: FUROSEMIDE20 M1 PO (10:57)
[2018-06-12] MEDS ORDERED: LISINOPRIL10 M1 PO (10:57)
[2018-06-12] MEDS ORDERED: ATORVASTATIN CA20 M1 PO (10:57)
[2018-06-12] MEDS ORDERED: COUMADIN5 M2 PO (11:19)
--- NOTE | 2018-06-12 13:26 | Discharge Summary ---
Visit Information Visit Dates Admission Date: 06/06/18 Discharge Date: 06/12/18 Hospital Course Course Attending Physician: Zahida RANDLE,Leonora Whitman Primary Care Physician: Patient Has No Primary Care Dr Consulting Request: Consulting Specialty: Cardiology Consulting Physician: Alexander RANDLE, [facility] Course: 58 year old male with PMH significant for atrial fibrillation on Coumadin presented to the hospital with a chief complaint of worsening shortness of breath and palpitations for 1 day. On admission the patientwas found to have rapid atrial fibrillation rate 162 and was admitted to the telemetry floor and managed for the following conditions. Atrial fibrillation with rapid ventricular response Patient was recently before this admission found to have new onset atrial fibrillation, and was started on diltiazem for rate control and Coumadin for anticoagulation. On this hospitalization, diltiazem was discontinued due to a new cardiomyopathy, and replaced with metoprolol. The patient was to be cardioverted on 06/09/18, but the MENDOZA found a left atrial appendage thrombus. The patient also had a subtherapeutic INR, which was bridged to therapeutic level 2- 3 with lovenox before discharge. Patient was also started on digoxin for rate control. Acute on chronic systolic heart failure The patient presenting with shortness of breath and elevated proBNP compared to previous month. Echocardogram showed ejection fraction of 20-25%. Patient was treated with Lasix 40mg daily. Morbid obesity Patient had elevated BMI and end organ dsyfunction. Patient received some discussion about treatment, but will need to be followed up outpatient. Complications: Due to combination diltiazem/metroprolol, atrial fibrillation and likely undiagnosed sleep apnea, patient experienced several <5sec pauses in heartbeat during this hospitalization. These were always asymptomatic and happened during sleep. Cardiology cleared. Allergies: Coded Allergies: No Known Allergies (06/06/18) Significant Procedures: Attempted MENDOZA, not completed due to left atrial appendage thrombus Pertinent Lab Results: SERVICE DATE: 06/06/18 EXAM TYPE: RAD - XRY-PORTABLE CHEST XRAY IMPRESSION: 1. Enlarged cardiomediastinal silhouette, may represent cardiomegaly versus pericardial effusion or combination thereof, given the difference in technique, appears similar to prior study dated 05/17/2018. 2. Superimposed likely mild CHF. SERVICE DATE: 06/06/18-1113 EXAM TYPE: CARD - ECHOCARDIOGRAM FRAN MADRIGAL Age: 58 : 1960 Gender: M Exam Date: 06/06/2018 11:53 Exam Location: ER Ht (in): 74 Wt (lb): 240 BSA: 2.41 BP: 108 / 62 Ordering Physician: Meri Coats MD Referring Physician: Meri Coats MD Technologist: Leila Charles [facility] Room Number: ER Indications: Cardiomyopathy, unspecified Rhythm: Technical Quality: Technically difficult study FINDINGS Left Ventricle Left ventricle not well visualized. Mild left ventricular dilatation. Normal left ventricular wall thickness. Severely reduced global left ventricular systolic function with anteroseptal akinesis. Left ventricular ejection fraction is estimated at 20-25 %. Right Ventricle Right ventricle not well visualized. Right Atrium Right atrium not well visualized. Left Atrium Mild left atrial dilatation. Mitral Valve Mitral valve not well visualized, grossly normal. Mild mitral regurgitation. Aortic Valve No aortic stenosis. Trileaflet aortic valve. Tricuspid Valve Tricuspid valve not well visualized. Mild tricuspid regurgitation. Unable to estimate the right ventricular systolic pressure. Pulmonic Valve Pulmonic valve not well visualized. Pericardium No pericardial effusion. Great Vessels Normal size aortic root. CONCLUSIONS Technically difficult study. Left ventricle not well visualized. Mild left ventricular dilatation. Normal left ventricular wall thickness. Severely reduced global left ventricular systolic function with anteroseptal akinesis. Left ventricular ejection fraction is estimated at 20-25 %. Right ventricle not well visualized. Mild left atrial dilatation. Unable to estimate the right ventricular systolic pressure. No pericardial effusion. Calixto Persaud M.D. (Electronically Signed) Final Date: 06 June 2018 20:17 MEASUREMENTS (Male / Female) Normal Values 2D ECHO LV Diastolic Diameter PLAX 6.5 cm 4.2 - 5.9 / 3.9 - 5.3 cm LV Systolic Diameter PLAX 5.2 cm 2.1 - 4.0 cm LV Fractional Shortening PLAX 20.0 % 25 - 46 % LV Ejection Fraction 2D Teich 40.0 % IVS Diastolic Thickness 1.0 cm LVPW Diastolic Thickness 1.1 cm LV Relative Wall Thickness 0.3 LVOT Diameter 2.0 cm Aortic Root Diameter 3.4 cm LA Systolic Diameter LX 4.8 cm 3.0 - 4.0 / 2.7 - 3.8 cm DOPPLER AV Peak Velocity 90.9 cm/s AV Peak Gradient 3.3 mmHg LVOT Peak Velocity 43.9 cm/s LVOT Peak Gradient 0.8 mmHg AV Area Cont Eq pk 1.5 cm Mitral E Point Velocity 101.2 cm/s MV Deceleration Time 267.0 ms TR Peak Velocity 289.0 cm/s TR Peak Gradient 33.4 mmHg LV E' Lateral Velocity 9.9 cm/s Mitral E to LV E' Lateral Ratio 10.2 LV E' Septal Velocity 7.9 cm/s Mitral E to LV E' Septal Ratio 12.8 SERVICE DATE: 06/08/18- EXAM TYPE: CARD - TRANSESOPHAGEAL ECHO ADDENDUM: FRAN MADRIGAL Age: 58 : Gender: M 1 Exam Date: 06/09/2018 11:15 Exam Location: [facility] Ht (in): 74 Wt (lb): 297 BSA: 2.70 BP: 134 / 90 Ordering Physician: Stephan Munoz MD Referring Physician: Stephan Munoz MD Technologist: Jordi Contreras [facility] Room Number: Indications: Persistent atrial fibrillation Rhythm: Atrial fibrillation Technical Quality: Medications Ease of Transducer Insertion No Difficulty Complications Technical Difficulty FINDINGS Left Ventricle Left ventricle not well visualized. Severely reduced global left ventricular systolic function. Right Ventricle Not visualized. Right Atrium Not visualized. Left Atrium Not visualized. LA Appendage Definite thrombus in the left atrial appendage. IA Septum Not visualized. Mitral Valve Not visualized. Aortic Valve Not visualized. Tricuspid Valve Not visualized. Pulmonic Valve Not visualized. Pericardium Not visualized. Great Vessels Not visualized. CONCLUSIONS Left ventricle not well visualized. Severely reduced global left ventricular systolic function. Definite thrombus in the left atrial appendage. Limited study. The patient became hypoxic and hypotensive after intubation with the MENDOZA probe. The study was discontinued. The patient's oxygenation improved with bag mask ventilation and blood pressure improved after ephedrine IVP. No cardioversion was attempted due to the presence of MALENA thrombus. Dr. Stephan Munoz (Electronically Signed) Final Date: 09 June 2018 17:20 Amended: 10 June 2018 09:40 MEASUREMENTS (Male / Female) Normal Values Addendum Signed by: Stephan Munoz MD 06/10/18 0940 ROHANFRAN Age: 58 : Gender: M 1 Exam Date: 06/09/2018 11:15 Exam Location: [facility] Ht (in): 74 Wt (lb): 297 BSA: 2.70 BP: 134 / 90 Ordering Physician: Stephan Munoz MD Referring Physician: Stephan Munoz MD Technologist: Jordi Contreras [facility] Room Number: Indications: Persistent atrial fibrillation Rhythm: Atrial fibrillation Technical Quality: Medications Ease of Transducer Insertion Complications Technical Difficulty FINDINGS Left Ventricle Left ventricle not well visualized. Severely reduced global left ventricular systolic function. Right Ventricle Right Atrium Left Atrium LA Appendage Definite thrombus in the left atrial appendage. IA Septum Mitral Valve Aortic Valve Tricuspid Valve Pulmonic Valve Pericardium Great Vessels CONCLUSIONS Left ventricle not well visualized. Severely reduced global left ventricular systolic function. Definite thrombus in the left atrial appendage. Limited study. The patient became hypoxic and hypotensive after intubation with the MENDOZA probe. The study was discontinued. The patient's oxygenation improved with bag mask ventilation and blood pressure improved after ephedrine IVP. No cardioversion was attempted due to the presence of MALENA thrombus. Dr. Stephan Munoz (Electronically Signed) Final Date: 09 June 2018 17:20 MEASUREMENTS (Male / Female) Normal Values Disposition Summary Disposition Principal Diagnosis: Atrial fibrillation with rapid ventricular response Additional Diagnosis: Thrombus of left atrial appendage Morbid obesity New onset congestive heart failure Discharge Disposition: home or self care Discharge Instructions General Discharge Information Code Status: Full Code Patient's Diet: Regular as tolerated Patient's Activity: Full as tolerated Follow-Up Instructions/Appts: Please call and make an appointment with your new primary care provider, Joe Wright, at [facility] within one week of discharge. Please follow up with your chicken raiser, Dr. Munoz, within seven days. Please remember to go to coumadin clinic this upcoming Friday for coumadin dosing. Medications at Discharge Discharge Medications: Stop taking the following medications: Diltiazem Cd (Diltiazem ER) 120 MG CAP.ER.DEG ORAL DAILY Qty = 21 Start taking the following new medications: Digoxin (Lanoxin) 125 MCG TABLET 0.125 Milligram ORAL 5 PM Qty = 30 No Refills Instructions: . Comments: Last Taken: 06/11/18 Time: 4:20 PM Atorvastatin Calcium (Atorvastatin Calcium) 20 MG TABLET 20 Milligram ORAL 5 PM Qty = 30 No Refills Instructions: . Comments: Last Taken: 06/11/18 Time: 4:20 PM Metoprolol Tartrate (Metoprolol Tartrate) 50 MG TABLET 50 Milligram ORAL Every Morning Qty = 30 No Refills Instructions: . Comments: Last Taken: 06/12/18 Time: 08 AM Lisinopril (Lisinopril) 10 MG TABLET 10 Milligram ORAL DAILY Qty = 30 No Refills Instructions: . Comments: Last Taken: 06/12/18 Time: 08 AM Metoprolol Tartrate (Metoprolol Tartrate) 25 MG TABLET 25 Milligram ORAL Every night Qty = 30 No Refills Instructions: . Comments: Last Taken: 06/11/18 Time: 10 PM Furosemide (Furosemide) 20 MG TABLET 40 Milligram ORAL DAILY Qty = 30 No Refills Instructions: . Comments: Last Taken: 06/12/18 Time: 08 AM The following medications have been changed: Old: Warfarin Sodium (Coumadin) 5 MG TABLET 1 Tablet ORAL DAILY Qty = 30 New: Warfarin Sodium (Coumadin) 5 MG TABLET 1 Tablet ORAL DAILY Qty = 30 Instructions: Coumadin to be dosed per INR to maintain a range of 2 to 3. Comments: Last Taken: 06/12/18 Time: 4:20 PM. Copies To: Joe Wright MD
== END 2018-06-12 12:30 | DRG 201 ==
LOC: ERH 08:22 → ERHI 09:58 → 1NO 09:58 → ENRESERV 11:01 → ENTRNSPT 12:26 → EDTRNSPTSTS 12:31 → 1NO 12:44 → CMPTRNSPT 12:59 → 1NO 06-08 07:35 → ENTRNSPT 06-12 12:01 → EDTRNSPT 06-12 12:23 → EDTRNSPTSTS 06-12 12:23 → 1NO 06-12 12:30 → CMPTRNSPT 06-12 12:34
PROVIDERS: Emergency Medicine; Hospitalist; Preventive Medicine Public Health & General Preventive Medicine; Student in an Organized Health Care Education/Training Program
PROC: B245ZZ4 Ultrasonography of Left Heart, Transesophageal (ICD-10-PCS; principal; 2018-06-09)
DX: I48.91 Unspecified atrial fibrillation (principal); I51.3 Intracardiac thrombosis, not elsewhere classified; I50.23 Acute on chronic systolic (congestive) heart failure; I49.5 Sick sinus syndrome; I42.9 Cardiomyopathy, unspecified; E66.01 Morbid (severe) obesity due to excess calories; Z68.41 Body mass index [BMI] 40.0-44.9, adult; I95.9 Hypotension, unspecified; G47.33 Obstructive sleep apnea (adult) (pediatric); R09.02 Hypoxemia; Z91.14 Patient's other noncompliance with medication regimen; Z53.09 Procedure and treatment not carried out because of other contraindication; Z79.01 Long term (current) use of anticoagulants; Z87.891 Personal history of nicotine dependence
CPT/HCPCS: 1NP; 1NSP; 36592; 71045; 82436; 93005; 93010; 93306; 93325; 96374; 96375; 96376; 99291; J1160; J1650; J1940